=== PATIENT | male | born 1950 | race Caucasian/White ===

== ENCOUNTER 2018-08-09 01:59 | Outpatient (CLI) | payer MEDICARE, BC, SELFPAY ==
[2018-08-09 10:01] LABS: Abs Immature Grans 0.03 k/cumm (0.0-0.09); Absolute Basophil Count 0.03 k/cumm (0.0-0.2); Absolute Eosinophil Count 0.21 k/cumm (0.0-0.7); Absolute Lymphocyte Count 0.92 k/cumm (1.2-3.4); Basophils % 0.5; Eosinophils % 3.8; HCT 41.8 % (40.0-50.0); HGB 14.3 g/dL (13.5-17.5); Immature Grans % 0.5; Lymphocytes % 16.5; Mean Corp. HGB Concentration 34.2 g/dL (32.0-36.0); Mean Corpuscular Hemoglobin 33.9 pg (27.0-33.0); Mean Corpuscular Volume 99.1 fL (80-95); Mean Platelet Volume 9.5 fL (8.0-11.0); Monocytes % 10.7; Platelet Count 212 x1000/uL (130-400); RBC 4.22 m/cumm (4.50-6.00); RBC Distribution Width 13.5 % (11.8-14.1); White Blood Cell Count 5.59 k/cumm (4.4-10.8)
[2018-08-09 10:14] LABS: ALT 35 U/L (12-78); AST 18 U/L (15-37); Albumin 3.8 g/dL (3.4-5.0); Alkaline Phosphatase 68 U/L (46-116); BUN 23 mg/dL (7-18); Bilirubin, Total 0.5 mg/dL (0.2-1.0); Calcium 9.6 mg/dL (8.5-10.1); Chloride 104 mmol/L (98-107); Estimated GFR 37.82 (mL/min/1.73m2); Glucose 101 mg/dL (70-100); Potassium 4.3 mmol/L (3.5-5.1); Sodium 142 mmol/L (136-145); Total Protein 7.2 g/dL (6.4-8.2)
[2018-08-09 10:27] LABS: Hemoglobin A1C 5.6 % (4.5-6.2)
[2018-08-09 10:56] LABS: Cholesterol 178 mg/dL (50-200); HDL Cholesterol 51 mg/dL (40-60); LDL CHOLESTEROL 94 mg/dL (<100); Triglyceride 199 mg/dL (30-150)
[2018-08-10 10:57] LABS: PSA, Diagnostic 0.2 ng/ml (0-4.5)
== END 2018-08-09 02:19 ==
PROVIDERS: Internal Medicine; PCP Nurse Practitioner Family; Visit Provider Nurse Practitioner
DX: E78.5 Hyperlipidemia, unspecified (principal); R73.01 Impaired fasting glucose; C61 Malignant neoplasm of prostate
CPT/HCPCS: 36415; 80053; 80061; 83721; 83036; 84153; 85025

== ENCOUNTER 2018-08-25 00:23 | Outpatient (CLI) | payer MEDICARE, BC, SELFPAY ==
--- NOTE | 2018-08-25 09:48 | DI.US_ITS ---
SYMPTOMS/DIAGNOSIS: AAA SCREENING, Z13.6, ENCOUNTER FOR SCREENING FOR CARDIOVASCULAR DISEASE AAA SCREENING ULTRASOUND: The AP diameter of the proximal aorta is 2.1 x 2.8 cm. The AP diameter of the mid abdominal aorta is 2.0 x 2.1 cm. The AP diameter of the distal aorta is 2.1 x 2.1 cm. The left iliac has a maximal caliber of 1.2 cm. The right iliac has a maximal caliber of 1.4 cm. SUMMARY: No evidence of an abdominal aortic aneurysm.
== END 2018-08-25 00:43 ==
PROVIDERS: PCP Nurse Practitioner Family; Visit Provider Nurse Practitioner Family
DX: Z13.6 Encounter for screening for cardiovascular disorders (principal); R69 Illness, unspecified
CPT/HCPCS: 76706

== ENCOUNTER 2019-01-10 10:43 | Outpatient (CLI) | payer MEDICARE, BC, SELFPAY ==
[2019-01-10 11:12] LABS: Abs Immature Grans 0.01 k/cumm (0.0-0.09); Absolute Basophil Count 0.03 k/cumm (0.0-0.2); Absolute Eosinophil Count 0.36 k/cumm (0.0-0.7); Absolute Lymphocyte Count 1.26 k/cumm (1.2-3.4); Absolute Monocyte Count 0.67 k/cumm (0.11-0.7); Absolute Neutrophil Count 3.68 k/cumm (1.2-6.7); Basophils % 0.5; HCT 39.1 % (40.0-50.0); HGB 13.5 g/dL (13.5-17.5); Immature Grans % 0.2; Mean Corp. HGB Concentration 34.5 g/dL (32.0-36.0); Mean Corpuscular Hemoglobin 34.5 pg (27.0-33.0); Mean Platelet Volume 9.6 fL (8.0-11.0); Monocytes % 11.1; Neutrophils % 61.2; Platelet Count 191 x1000/uL (130-400); RBC 3.91 m/cumm (4.50-6.00); RBC Distribution Width 13.2 % (11.8-14.1); White Blood Cell Count 6.01 k/cumm (4.4-10.8)
[2019-01-10 11:20] LABS: ALT 35 U/L (12-78); AST 19 U/L (15-37); Albumin 3.7 g/dL (3.4-5.0); Alkaline Phosphatase 65 U/L (46-116); Anion Gap 7.8 mmol/L (3-11); BUN 30 mg/dL (7-18); Bilirubin, Total 0.5 mg/dL (0.2-1.0); CO2 28.2 mmol/L (21.0-32.0); CREATININE 1.82 mg/dL (0.70-1.30); Calcium 9.2 mg/dL (8.5-10.1); Chloride 105 mmol/L (98-107); Estimated GFR 37.23 (mL/min/1.73m2); Glucose 104 mg/dL (70-100); Potassium 4.8 mmol/L (3.5-5.1); Sodium 141 mmol/L (136-145); Total Protein 6.6 g/dL (6.4-8.2)
[2019-01-11 10:29] LABS: PSA, Diagnostic 0.1 ng/ml (0-4.5)
== END 2019-01-10 11:03 ==
PROVIDERS: PCP Nurse Practitioner Family; Visit Provider Internal Medicine
DX: C61 Malignant neoplasm of prostate (principal)
CPT/HCPCS: 36415; 80053; 84153; 85025

== ENCOUNTER 2019-04-20 09:26 | Outpatient (CLI) | payer MEDICARE, BC, SELFPAY ==
[2019-04-20 09:51] LABS: Abs Immature Grans 0.02 k/cumm (0.0-0.09); Absolute Basophil Count 0.02 k/cumm (0.0-0.2); Absolute Eosinophil Count 0.14 k/cumm (0.0-0.7); Absolute Lymphocyte Count 1.09 k/cumm (1.2-3.4); Absolute Monocyte Count 0.53 k/cumm (0.11-0.7); Absolute Neutrophil Count 4.12 k/cumm (1.2-6.7); Basophils % 0.3; Eosinophils % 2.4; HCT 41.5 % (40.0-50.0); Immature Grans % 0.3; Lymphocytes % 18.4; Mean Corp. HGB Concentration 33.7 g/dL (32.0-36.0); Mean Corpuscular Hemoglobin 33.7 pg (27.0-33.0); Mean Corpuscular Volume 99.8 fL (80-95); Mean Platelet Volume 9.5 fL (8.0-11.0); Neutrophils % 69.6; Platelet Count 193 x1000/uL (130-400); RBC 4.16 m/cumm (4.50-6.00); RBC Distribution Width 13.2 % (11.8-14.1); White Blood Cell Count 5.92 k/cumm (4.4-10.8)
[2019-04-20 11:29] LABS: Anion Gap 9.2 mmol/L (3-11); BUN 26 mg/dL (7-18); CO2 28.8 mmol/L (21.0-32.0); CREATININE 1.73 mg/dL (0.70-1.30); Calcium 8.8 mg/dL (8.5-10.1); Chloride 106 mmol/L (98-107); Estimated GFR 39.48 (mL/min/1.73m2); Glucose 93 mg/dL (70-100); Potassium 4.8 mmol/L (3.5-5.1); Sodium 144 mmol/L (136-145)
[2019-04-20 11:31] LABS: Vitamin B12 > 2000 pg/mL (193-986)
[2019-04-20 11:45] LABS: Uric Acid 5.8 mg/dL (3.5-7.2)
== END 2019-04-20 09:46 ==
PROVIDERS: PCP Nurse Practitioner Family; Visit Provider Nurse Practitioner Family
DX: D75.89 Other specified diseases of blood and blood-forming organs (principal); M10.9 Gout, unspecified; N18.3 Chronic kidney disease, stage 3 (moderate)
CPT/HCPCS: 36415; 80048; 82607; 82746; 84550; 85025

== ENCOUNTER 2019-05-23 15:30 | Outpatient (REF) | payer MEDICARE, BC, SELFPAY ==
[2019-05-23 19:58] LABS: ALT 28 U/L (16-63); AST 17 U/L (15-37); Alkaline Phosphatase 69 U/L (46-116); Anion Gap 11.7 mmol/L (3-11); BUN 35 mg/dL (7-18); Bilirubin, Total 0.4 mg/dL (0.2-1.0); CO2 27.3 mmol/L (21.0-32.0); CREATININE 1.87 mg/dL (0.70-1.30); Calcium 9.6 mg/dL (8.5-10.1); Chloride 102 mmol/L (98-107); Estimated GFR 36.09 (mL/min/1.73m2); Glucose 120 mg/dL (70-100); Lipase 201 U/L (73-393); Potassium 4.4 mmol/L (3.5-5.1); Sodium 141 mmol/L (136-145); TSH (W/Ref FT4) 1.81 uIU/mL (0.36-3.74)
[2019-05-23 20:14] LABS: Abs Immature Grans 0.02 k/cumm (0.0-0.09); Absolute Basophil Count 0.04 k/cumm (0.0-0.2); Absolute Eosinophil Count 0.23 k/cumm (0.0-0.7); Absolute Lymphocyte Count 1.54 k/cumm (1.2-3.4); Absolute Monocyte Count 0.83 k/cumm (0.11-0.7); Absolute Neutrophil Count 4.67 k/cumm (1.2-6.7); Basophils % 0.5; Eosinophils % 3.1; HCT 42.3 % (40.0-50.0); HGB 14.8 g/dL (13.5-17.5); Immature Grans % 0.3; Mean Corpuscular Hemoglobin 34.4 pg (27.0-33.0); Mean Corpuscular Volume 98.4 fL (80-95); Mean Platelet Volume 10.3 fL (8.0-11.0); Monocytes % 11.3; Neutrophils % 63.8; Platelet Count 231 x1000/uL (130-400); RBC Distribution Width 13.1 % (11.8-14.1); White Blood Cell Count 7.33 k/cumm (4.4-10.8)
== END 2019-05-23 15:50 ==
LOC: LBO 15:30
PROVIDERS: PCP Nurse Practitioner Family; Visit Provider Family Medicine
DX: R10.9 Unspecified abdominal pain (principal); G60.9 Hereditary and idiopathic neuropathy, unspecified; C61 Malignant neoplasm of prostate
CPT/HCPCS: 80053; 83690; 84154; 84443; 85025; 87086

== ENCOUNTER 2019-05-31 01:03 | Outpatient (CLI) | payer MEDICARE, BC, SELFPAY ==
--- NOTE | 2019-05-31 06:51 | DI.US_ITS ---
EXAM: US ABDOMEN CLINICAL HISTORY: Unexplained generalized abdominal pain,R10.9 TECHNIQUE: Ultrasound performed using standard protocol. COMPARISON: US AAA screening from 08/25/2018 FINDINGS: The abdominal aorta is unremarkable. The inferior vena cava is unremarkable. The liver is normal in size. No hepatic mass is seen. There is hepatopetal flow through the portal vein. Gallbladder is unremarkable. There is a negative sonographic Durham's sign. The common duct is within normal limit s at 5.8 mm. The pancreas, spleen and kidneys are unremarkable. No free fluid is seen in the abdome n. IMPRESSION: Unremarkable abdominal ultrasound.
== END 2019-05-31 01:23 ==
PROVIDERS: PCP Nurse Practitioner Family; Visit Provider Family Medicine
DX: R10.84 Generalized abdominal pain (principal); Z13.6 Encounter for screening for cardiovascular disorders
CPT/HCPCS: 76700

== ENCOUNTER 2019-07-14 16:29 | Outpatient (CLI) | payer MEDICARE, BC, SELFPAY ==
[2019-07-14 16:55] LABS: Abs Immature Grans 0.01 k/cumm (0.0-0.09); Absolute Basophil Count 0.04 k/cumm (0.0-0.2); Absolute Eosinophil Count 0.31 k/cumm (0.0-0.7); Absolute Lymphocyte Count 1.26 k/cumm (1.2-3.4); Absolute Monocyte Count 0.55 k/cumm (0.11-0.7); Absolute Neutrophil Count 3.03 k/cumm (1.2-6.7); Basophils % 0.8; HCT 39.8 % (40.0-50.0); Immature Grans % 0.2; Lymphocytes % 24.2; Mean Corp. HGB Concentration 35.2 g/dL (32.0-36.0); Mean Corpuscular Volume 96.6 fL (80-95); Mean Platelet Volume 9.2 fL (8.0-11.0); Monocytes % 10.6; Neutrophils % 58.2; Platelet Count 192 x1000/uL (130-400); RBC 4.12 m/cumm (4.50-6.00); RBC Distribution Width 13.1 % (11.8-14.1)
[2019-07-14 18:40] LABS: ALT 27 U/L (16-63); AST 14 U/L (15-37); Albumin 3.9 g/dL (3.4-5.0); Alkaline Phosphatase 63 U/L (46-116); Anion Gap 8.8 mmol/L (3-11); BUN 35 mg/dL (7-18); Bilirubin, Total 0.4 mg/dL (0.2-1.0); CO2 29.2 mmol/L (21.0-32.0); CREATININE 1.96 mg/dL (0.70-1.30); Calcium 9.6 mg/dL (8.5-10.1); Chloride 103 mmol/L (98-107); Estimated GFR 34.18 (mL/min/1.73m2); Glucose 96 mg/dL (74-106); Potassium 3.9 mmol/L (3.5-5.1); Sodium 141 mmol/L (136-145); Total Protein 6.9 g/dL (6.4-8.2)
[2019-07-17 09:56] LABS: PSA, Diagnostic 0.3 ng/mL (0.0-4.5)
== END 2019-07-14 16:49 ==
PROVIDERS: PCP Nurse Practitioner Family; Visit Provider Internal Medicine
DX: C61 Malignant neoplasm of prostate (principal)
CPT/HCPCS: 36415; 80053; 84153; 85025

== ENCOUNTER 2019-09-07 14:02 | Outpatient (REF) | payer MEDICARE, BC, SELFPAY | END 2019-09-07 14:22 | LOC: LBN 14:02 | PROVIDERS: PCP Nurse Practitioner Family; Visit Provider Internal Medicine Infectious Disease | DX: M86.9 Osteomyelitis, unspecified (principal) ==

== ENCOUNTER 2019-09-12 14:51 | Outpatient (CLI) | payer MEDICARE, BC, SELFPAY ==
--- NOTE | 2019-09-12 15:05 | DI.RAD_ITS ---
EXAM: XR CHEST 2V PA LATERAL INDICATION: OSTEOMYELITIS RT FOOT, M86.9, INFECTION, A49.1, CONFIRMATION OF PICC LINE. COMPARISON: No exams were available for comparison TECHNIQUE: 2D digital imaging was performed. FINDINGS: A PICC line has been inserted via the left arm. The tip projects in the superior vena cava. The philippe gs are clear. No pneumothorax is seen. The heart size is normal. The aorta is mildly tortuous. IMPRESSION: Satisfactory placement of PICC line.
== END 2019-09-12 15:11 ==
PROVIDERS: PCP Nurse Practitioner Family; Visit Provider Internal Medicine
DX: Z45.2 Encounter for adjustment and management of vascular access device (principal); M86.171 Other acute osteomyelitis, right ankle and foot; A49.1 Streptococcal infection, unspecified site
CPT/HCPCS: 71046

== ENCOUNTER 2019-09-30 02:01 | Outpatient (RCR) | payer MEDICARE, BC, SELFPAY ==
[2019-09-04] MEDS: Normal Saline Flush 10 ML SYR IVP ×2 (14:35→14:53)
[2019-09-04 14:49] LABS: Abs Immature Grans 0.06 k/cumm (0.0-0.09); Absolute Basophil Count 0.02 k/cumm (0.0-0.2); Absolute Eosinophil Count 0.15 k/cumm (0.0-0.7); Absolute Monocyte Count 0.75 k/cumm (0.11-0.7); Absolute Neutrophil Count 5.58 k/cumm (1.2-6.7); Basophils % 0.3; HCT 40.3 % (40.0-50.0); HGB 13.9 g/dL (13.5-17.5); Immature Grans % 0.8 %; Lymphocytes % 14.4; Mean Corp. HGB Concentration 34.5 g/dL (32.0-36.0); Mean Corpuscular Hemoglobin 33.4 pg (27.0-33.0); Mean Corpuscular Volume 96.9 fL (80-95); Mean Platelet Volume 9.5 fL (8.0-11.0); Monocytes % 9.8; Neutrophils % 72.7; Platelet Count 297 x1000/uL (130-400); RBC 4.16 m/cumm (4.50-6.00); RBC Distribution Width 12.9 % (11.8-14.1); White Blood Cell Count 7.66 k/cumm (4.4-10.8)
[2019-09-04 15:05] LABS: ALT 101 U/L (16-63); AST 107 U/L (15-37); Albumin 3.1 g/dL (3.4-5.0); Alkaline Phosphatase 59 U/L (46-116); Anion Gap 11.4 mmol/L (3-11); BUN 47 mg/dL (7-18); Bilirubin, Total 0.2 mg/dL (0.2-1.0); C-Reactive Protein 1.27 mg/dL (0.0-0.3); CO2 26.6 mmol/L (21.0-32.0); CREATININE 2.76 mg/dL (0.70-1.30); Calcium 9.3 mg/dL (8.5-10.1); Chloride 101 mmol/L (98-107); Creatine Kinase 82 U/L (39-308); Estimated GFR 23.03 (mL/min/1.73m2); Glucose 164 mg/dL (74-106); Potassium 3.7 mmol/L (3.5-5.1); Sodium 139 mmol/L (136-145); Total Protein 7.2 g/dL (6.4-8.2)
[2019-09-05] MEDS: Normal Saline Flush 10 ML SYR IVP (15:00)
[2019-09-05 15:06] VITALS: BP 125/85; PULSE 106; RESP 18; TEMP 36.7; O2SAT 98
[2019-09-06] MEDS: cefTRIAXone 2 GM/50 ML BAG IVPB (13:59)
[2019-09-06] MEDS: Normal Saline Flush 10 ML SYR IVP (13:59)
[2019-09-07] MEDS: cefTRIAXone 2 GM/50 ML BAG IVPB (14:07)
[2019-09-07] MEDS: Normal Saline Flush 10 ML SYR IVP (14:07)
[2019-09-08] MEDS: Normal Saline Flush 10 ML SYR IVP (14:16)
[2019-09-08] MEDS: cefTRIAXone 2 GM/50 ML BAG IVPB (14:16)
[2019-09-08 14:20] VITALS: PULSE 116; TEMP 36.3
[2019-09-08 14:51] LABS: Abs Immature Grans 0.05 k/cumm (0.0-0.09); Absolute Basophil Count 0.03 k/cumm (0.0-0.2); Absolute Eosinophil Count 0.18 k/cumm (0.0-0.7); Absolute Lymphocyte Count 1.33 k/cumm (1.2-3.4); Absolute Monocyte Count 0.81 k/cumm (0.11-0.7); Absolute Neutrophil Count 6.82 k/cumm (1.2-6.7); Basophils % 0.3; HCT 39.6 % (40.0-50.0); HGB 13.7 g/dL (13.5-17.5); Immature Grans % 0.5 %; Lymphocytes % 14.4; Mean Corp. HGB Concentration 34.6 g/dL (32.0-36.0); Mean Corpuscular Hemoglobin 33.7 pg (27.0-33.0); Mean Corpuscular Volume 97.5 fL (80-95); Mean Platelet Volume 9.2 fL (8.0-11.0); Monocytes % 8.8; Platelet Count 329 x1000/uL (130-400); RBC 4.06 m/cumm (4.50-6.00); RBC Distribution Width 13.2 % (11.8-14.1); White Blood Cell Count 9.22 k/cumm (4.4-10.8)
[2019-09-08 14:54] LABS: ALT 68 U/L (16-63); AST 29 U/L (15-37); Albumin 3.3 g/dL (3.4-5.0); Alkaline Phosphatase 57 U/L (46-116); BUN 42 mg/dL (7-18); Bilirubin, Total 0.2 mg/dL (0.2-1.0); C-Reactive Protein 0.15 mg/dL (0.0-0.3); CREATININE 2.34 mg/dL (0.70-1.30); Calcium 8.9 mg/dL (8.5-10.1); Chloride 104 mmol/L (98-107); Creatine Kinase 79 U/L (39-308); Estimated GFR 27.86 (mL/min/1.73m2); Glucose 116 mg/dL (74-106); Potassium 4.2 mmol/L (3.5-5.1); Sodium 139 mmol/L (136-145); Total Protein 6.9 g/dL (6.4-8.2)
[2019-09-08 14:55] VITALS: BP 149/94; PULSE 100; TEMP 36.6; O2SAT 98
[2019-09-09] MEDS: cefTRIAXone 2 GM/50 ML BAG IVPB (14:15)
[2019-09-09 14:17] VITALS: BP 126/88; PULSE 109; RESP 16; TEMP 36.9; O2SAT 98
[2019-09-09] MEDS: Normal Saline Flush 10 ML SYR IVP ×2 (14:17→14:53)
[2019-09-10 14:15] VITALS: BP 132/87; PULSE 105; RESP 18; TEMP 36.5; O2SAT 96
[2019-09-10] MEDS: cefTRIAXone 2 GM/50 ML BAG IVPB (14:23)
[2019-09-10] MEDS: Normal Saline Flush 10 ML SYR IVP (14:23)
[2019-09-11] MEDS: cefTRIAXone 2 GM/50 ML BAG IVPB (13:21)
[2019-09-11] MEDS: Normal Saline Flush 10 ML SYR IVP (13:22)
[2019-09-11 14:06] LABS: Abs Immature Grans 0.04 k/cumm (0.0-0.09); Absolute Basophil Count 0.05 k/cumm (0.0-0.2); Absolute Eosinophil Count 0.17 k/cumm (0.0-0.7); Absolute Lymphocyte Count 1.26 k/cumm (1.2-3.4); Absolute Neutrophil Count 7.14 k/cumm (1.2-6.7); Basophils % 0.5; Eosinophils % 1.8; HGB 14.5 g/dL (13.5-17.5); Immature Grans % 0.4 %; Lymphocytes % 13.2; Mean Corp. HGB Concentration 34.5 g/dL (32.0-36.0); Mean Corpuscular Hemoglobin 33.6 pg (27.0-33.0); Mean Corpuscular Volume 97.4 fL (80-95); Mean Platelet Volume 9.2 fL (8.0-11.0); Monocytes % 9.4; Neutrophils % 74.7; Platelet Count 336 x1000/uL (130-400); RBC 4.31 m/cumm (4.50-6.00); RBC Distribution Width 13.5 % (11.8-14.1); White Blood Cell Count 9.56 k/cumm (4.4-10.8)
[2019-09-11 14:18] LABS: ALT 43 U/L (16-63); AST 20 U/L (15-37); Albumin 3.5 g/dL (3.4-5.0); Alkaline Phosphatase 55 U/L (46-116); Anion Gap 9.4 mmol/L (3-11); BUN 39 mg/dL (7-18); Bilirubin, Total 0.2 mg/dL (0.2-1.0); CO2 25.6 mmol/L (21.0-32.0); Chloride 103 mmol/L (98-107); Creatine Kinase 51 U/L (39-308); Estimated GFR 28.42 (mL/min/1.73m2); Glucose 156 mg/dL (74-106); Potassium 4.3 mmol/L (3.5-5.1); Sodium 138 mmol/L (136-145); Total Protein 7.2 g/dL (6.4-8.2)
[2019-09-11 14:24] LABS: C-Reactive Protein < 0.05 mg/dL (0.0-0.3)
[2019-09-12] MEDS: Normal Saline Flush 10 ML SYR IVP (14:05)
[2019-09-12] MEDS: cefTRIAXone 2 GM/50 ML BAG IVPB (14:10)
[2019-09-13] MEDS: Normal Saline Flush 10 ML SYR IVP (14:56)
[2019-09-13] MEDS: Alteplase 2 MG VIAL IJ (14:56)
[2019-09-13] MEDS: cefTRIAXone 2 GM/50 ML BAG IVPB (14:56)
[2019-09-13] MEDS: Water,Injection,Sterile 10 ML VIAL 2.2 ML IV (14:57)
[2019-09-14] MEDS: cefTRIAXone 2 GM/50 ML BAG IVPB (13:54)
[2019-09-14] MEDS: Normal Saline Flush 10 ML SYR IVP (13:55)
[2019-09-15] MEDS: cefTRIAXone 2 GM/50 ML BAG IVPB (14:55)
[2019-09-15] MEDS: Normal Saline Flush 10 ML SYR IVP (15:06)
[2019-09-16] MEDS: cefTRIAXone 2 GM/50 ML BAG IVPB (14:10)
[2019-09-16] MEDS: Normal Saline Flush 10 ML SYR IVP (14:11)
[2019-09-17] MEDS: cefTRIAXone 2 GM/50 ML BAG IVPB ×2 (14:17→14:19)
[2019-09-18] MEDS: cefTRIAXone 2 GM/50 ML BAG IVPB (13:15)
[2019-09-18] MEDS: Normal Saline Flush 10 ML SYR IVP (13:31)
[2019-09-18 14:07] LABS: Abs Immature Grans 0.01 k/cumm (0.0-0.09); Absolute Basophil Count 0.03 k/cumm (0.0-0.2); Absolute Lymphocyte Count 1.06 k/cumm (1.2-3.4); Absolute Monocyte Count 0.55 k/cumm (0.11-0.7); Absolute Neutrophil Count 3.73 k/cumm (1.2-6.7); Basophils % 0.5; Eosinophils % 3.6; HCT 37.9 % (40.0-50.0); Immature Grans % 0.2 %; Mean Corp. HGB Concentration 34.3 g/dL (32.0-36.0); Mean Corpuscular Hemoglobin 33.9 pg (27.0-33.0); Mean Corpuscular Volume 98.7 fL (80-95); Mean Platelet Volume 9.6 fL (8.0-11.0); Monocytes % 9.9; Neutrophils % 66.8; Platelet Count 247 x1000/uL (130-400); RBC 3.84 m/cumm (4.50-6.00); RBC Distribution Width 13.7 % (11.8-14.1); White Blood Cell Count 5.58 k/cumm (4.4-10.8)
[2019-09-18 14:21] LABS: ALT 22 U/L (16-63); AST 18 U/L (15-37); Alkaline Phosphatase 47 U/L (46-116); Anion Gap 10.6 mmol/L (3-11); BUN 29 mg/dL (7-18); Bilirubin, Total 0.2 mg/dL (0.2-1.0); CO2 26.4 mmol/L (21.0-32.0); CREATININE 2.08 mg/dL (0.70-1.30); Calcium 8.5 mg/dL (8.5-10.1); Chloride 105 mmol/L (98-107); Estimated GFR 31.91 (mL/min/1.73m2); Glucose 144 mg/dL (74-106); Potassium 4.4 mmol/L (3.5-5.1); Sodium 142 mmol/L (136-145); Total Protein 6.3 g/dL (6.4-8.2)
[2019-09-18 14:34] LABS: C-Reactive Protein < 0.05 mg/dL (0.0-0.3)
[2019-09-19] MEDS: cefTRIAXone 2 GM/50 ML BAG IVPB (13:26)
[2019-09-19] MEDS: Normal Saline Flush 10 ML SYR IVP (13:27)
[2019-09-20] MEDS: cefTRIAXone 2 GM/50 ML BAG IVPB (14:08)
[2019-09-20] MEDS: Normal Saline Flush 10 ML SYR IVP (14:09)
[2019-09-21] MEDS: Normal Saline Flush 10 ML SYR IVP (14:03)
[2019-09-21] MEDS: cefTRIAXone 2 GM/50 ML BAG IVPB (14:03)
[2019-09-22] MEDS: cefTRIAXone 2 GM/50 ML BAG IVPB (13:32)
[2019-09-22] MEDS: Normal Saline Flush 10 ML SYR IVP (13:33)
[2019-09-23] MEDS: cefTRIAXone 2 GM/50 ML BAG IVPB (14:05)
[2019-09-23] MEDS: Normal Saline Flush 10 ML SYR IVP (14:06)
[2019-09-24] MEDS: cefTRIAXone 2 GM/50 ML BAG IVPB (14:01)
[2019-09-24 14:02] VITALS: BP 165/94; PULSE 80; RESP 16; TEMP 37.1; O2SAT 98
[2019-09-24] MEDS: Normal Saline Flush 10 ML SYR IVP (14:02)
[2019-09-25] MEDS: cefTRIAXone 2 GM/50 ML BAG IVPB (14:00)
[2019-09-25] MEDS: Normal Saline Flush 10 ML SYR IVP (14:01)
[2019-09-25 14:45] LABS: Abs Immature Grans 0.02 k/cumm (0.0-0.09); Absolute Basophil Count 0.04 k/cumm (0.0-0.2); Absolute Eosinophil Count 0.17 k/cumm (0.0-0.7); Absolute Lymphocyte Count 1.33 k/cumm (1.2-3.4); Absolute Monocyte Count 0.81 k/cumm (0.11-0.7); Absolute Neutrophil Count 3.75 k/cumm (1.2-6.7); Basophils % 0.7; Eosinophils % 2.8; HCT 39.3 % (40.0-50.0); HGB 13.7 g/dL (13.5-17.5); Immature Grans % 0.3 %; Lymphocytes % 21.7; Mean Corp. HGB Concentration 34.9 g/dL (32.0-36.0); Mean Corpuscular Hemoglobin 34.4 pg (27.0-33.0); Mean Corpuscular Volume 98.7 fL (80-95); Mean Platelet Volume 9.7 fL (8.0-11.0); Monocytes % 13.2; Neutrophils % 61.3; Platelet Count 206 x1000/uL (130-400); RBC 3.98 m/cumm (4.50-6.00); RBC Distribution Width 13.7 % (11.8-14.1); White Blood Cell Count 6.12 k/cumm (4.4-10.8)
[2019-09-25 15:19] LABS: ALT 26 U/L (16-63); AST 23 U/L (15-37); Albumin 3.2 g/dL (3.4-5.0); Alkaline Phosphatase 45 U/L (46-116); Anion Gap 12.7 mmol/L (3-11); BUN 29 mg/dL (7-18); Bilirubin, Total 0.2 mg/dL (0.2-1.0); CO2 23.3 mmol/L (21.0-32.0); CREATININE 1.92 mg/dL (0.70-1.30); Calcium 8.9 mg/dL (8.5-10.1); Chloride 104 mmol/L (98-107); Creatine Kinase 49 U/L (39-308); Glucose 106 mg/dL (74-106); Potassium 4.4 mmol/L (3.5-5.1); Sodium 140 mmol/L (136-145); Total Protein 6.6 g/dL (6.4-8.2)
[2019-09-25 15:29] LABS: C-Reactive Protein < 0.05 mg/dL (0.0-0.3)
[2019-09-26] MEDS: cefTRIAXone 2 GM/50 ML BAG IVPB (13:52)
[2019-09-26] MEDS: Normal Saline Flush 10 ML SYR IVP (14:16)
[2019-09-27] MEDS: cefTRIAXone 2 GM/50 ML BAG IVPB (13:59)
[2019-09-27] MEDS: Normal Saline Flush 10 ML SYR IVP (13:59)
[2019-09-28] MEDS: cefTRIAXone 2 GM/50 ML BAG IVPB (14:09)
[2019-09-28] MEDS: Normal Saline Flush 10 ML SYR IVP (14:09)
[2019-09-29] MEDS: Normal Saline Flush 10 ML SYR IVP (13:59)
[2019-09-29] MEDS: cefTRIAXone 2 GM/50 ML BAG IVPB (13:59)
[2019-09-30] MEDS: Normal Saline Flush 10 ML SYR IVP (14:14)
[2019-09-30] MEDS: cefTRIAXone 2 GM/50 ML BAG IVPB (14:14)
== END 2019-09-30 23:59 | disposition home or self-care (01) ==
LOC: INF 02:01
PROVIDERS: PCP Nurse Practitioner Family; Referring Provider Internal Medicine Infectious Disease; Visit Provider Internal Medicine
DX: M86.9 Osteomyelitis, unspecified (principal); A49.1 Streptococcal infection, unspecified site; Z79.2 Long term (current) use of antibiotics; Z45.2 Encounter for adjustment and management of vascular access device
CPT/HCPCS: 36415; 36569; 36591; 36592; 36593; 80053; 82550; 96365; 96374; 71046; 85025; 86140; 87324; J0878; J2997

== ENCOUNTER 2019-10-15 00:50 | Outpatient (RCR) | payer MEDICARE, BC, SELFPAY ==
[2019-10-01] MEDS: cefTRIAXone 2 GM/50 ML BAG IVPB (14:05)
[2019-10-01] MEDS: Normal Saline Flush 10 ML SYR IVP (14:05)
[2019-10-02] MEDS: Normal Saline Flush 10 ML SYR IVP (14:11)
[2019-10-02] MEDS: cefTRIAXone 2 GM/50 ML BAG IVPB (14:11)
[2019-10-02 14:28] LABS: Abs Immature Grans 0.01 k/cumm (0.0-0.09); Absolute Basophil Count 0.03 k/cumm (0.0-0.2); Absolute Eosinophil Count 0.19 k/cumm (0.0-0.7); Absolute Lymphocyte Count 1.48 k/cumm (1.2-3.4); Absolute Monocyte Count 0.73 k/cumm (0.11-0.7); Absolute Neutrophil Count 4.34 k/cumm (1.2-6.7); Basophils % 0.4; Eosinophils % 2.8; HCT 40.5 % (40.0-50.0); HGB 14.1 g/dL (13.5-17.5); Immature Grans % 0.1 %; Lymphocytes % 21.8; Mean Corp. HGB Concentration 34.8 g/dL (32.0-36.0); Mean Corpuscular Hemoglobin 34.3 pg (27.0-33.0); Mean Corpuscular Volume 98.5 fL (80-95); Mean Platelet Volume 9.6 fL (8.0-11.0); Monocytes % 10.8; Neutrophils % 64.1; Platelet Count 244 x1000/uL (130-400); RBC 4.11 m/cumm (4.50-6.00); RBC Distribution Width 13.6 % (11.8-14.1); White Blood Cell Count 6.78 k/cumm (4.4-10.8)
[2019-10-02 14:42] LABS: ALT 22 U/L (16-63); Albumin 3.3 g/dL (3.4-5.0); Alkaline Phosphatase 51 U/L (46-116); Anion Gap 8.7 mmol/L (3-11); BUN 37 mg/dL (7-18); Bilirubin, Total 0.2 mg/dL (0.2-1.0); CO2 27.3 mmol/L (21.0-32.0); CREATININE 2.01 mg/dL (0.70-1.30); Calcium 8.8 mg/dL (8.5-10.1); Chloride 105 mmol/L (98-107); Glucose 149 mg/dL (74-106); Potassium 4.3 mmol/L (3.5-5.1); Sodium 141 mmol/L (136-145); Total Protein 6.6 g/dL (6.4-8.2)
[2019-10-02 16:00] LABS: C-Reactive Protein < 0.05 mg/dL (0.0-0.3)
[2019-10-02 16:01] LABS: AST 18 U/L (15-37)
[2019-10-03] MEDS: Normal Saline Flush 10 ML SYR IVP (13:30)
[2019-10-03] MEDS: cefTRIAXone 2 GM/50 ML BAG IVPB (13:30)
[2019-10-04] MEDS: cefTRIAXone 2 GM/50 ML BAG IVPB (13:58)
[2019-10-04] MEDS: Normal Saline Flush 10 ML SYR IVP (14:03)
[2019-10-05] MEDS: cefTRIAXone 2 GM/50 ML BAG IVPB (14:01)
[2019-10-05] MEDS: Normal Saline Flush 10 ML SYR IVP (14:02)
[2019-10-06] MEDS: cefTRIAXone 2 GM/50 ML BAG IVPB (14:06)
[2019-10-06] MEDS: Normal Saline Flush 10 ML SYR IVP (14:07)
[2019-10-07] MEDS: cefTRIAXone 2 GM/50 ML BAG IVPB (13:58)
[2019-10-07] MEDS: Normal Saline Flush 10 ML SYR IVP (13:59)
[2019-10-08] MEDS: cefTRIAXone 2 GM/50 ML BAG IVPB (14:35)
[2019-10-08] MEDS: Normal Saline Flush 10 ML SYR IVP (14:44)
[2019-10-09] MEDS: cefTRIAXone 2 GM/50 ML BAG IVPB (14:03)
[2019-10-09] MEDS: Normal Saline Flush 10 ML SYR IVP (14:04)
[2019-10-09 14:29] LABS: Abs Immature Grans 0.02 k/cumm (0.0-0.09); Absolute Basophil Count 0.02 k/cumm (0.0-0.2); Absolute Eosinophil Count 0.14 k/cumm (0.0-0.7); Absolute Lymphocyte Count 1.53 k/cumm (1.2-3.4); Absolute Monocyte Count 0.74 k/cumm (0.11-0.7); Absolute Neutrophil Count 4.46 k/cumm (1.2-6.7); Basophils % 0.3; HCT 40.9 % (40.0-50.0); HGB 13.8 g/dL (13.5-17.5); Immature Grans % 0.3 %; Lymphocytes % 22.1; Mean Corp. HGB Concentration 33.7 g/dL (32.0-36.0); Mean Corpuscular Hemoglobin 33.1 pg (27.0-33.0); Mean Corpuscular Volume 98.1 fL (80-95); Mean Platelet Volume 9.6 fL (8.0-11.0); Monocytes % 10.7; Neutrophils % 64.6; Platelet Count 269 x1000/uL (130-400); RBC 4.17 m/cumm (4.50-6.00); RBC Distribution Width 13.6 % (11.8-14.1); White Blood Cell Count 6.91 k/cumm (4.4-10.8)
[2019-10-09 14:38] LABS: ALT 23 U/L (16-63); AST 17 U/L (15-37); Albumin 3.3 g/dL (3.4-5.0); Alkaline Phosphatase 48 U/L (46-116); Anion Gap 7.8 mmol/L (3-11); BUN 30 mg/dL (7-18); Bilirubin, Total 0.2 mg/dL (0.2-1.0); CO2 27.2 mmol/L (21.0-32.0); CREATININE 1.83 mg/dL (0.70-1.30); Calcium 8.9 mg/dL (8.5-10.1); Chloride 104 mmol/L (98-107); Glucose 153 mg/dL (74-106); Potassium 4.1 mmol/L (3.5-5.1); Sodium 139 mmol/L (136-145); Total Protein 6.6 g/dL (6.4-8.2)
[2019-10-09 14:40] LABS: C-Reactive Protein < 0.05 mg/dL (0.0-0.3)
[2019-10-10] MEDS: cefTRIAXone 2 GM/50 ML BAG IVPB (14:09)
[2019-10-10] MEDS: Normal Saline Flush 10 ML SYR IVP (14:09)
[2019-10-11] MEDS: cefTRIAXone 2 GM/50 ML BAG IVPB (13:55)
[2019-10-11] MEDS: Normal Saline Flush 10 ML SYR IVP (13:55)
[2019-10-12] MEDS: cefTRIAXone 2 GM/50 ML BAG IVPB (14:15)
[2019-10-12] MEDS: Normal Saline Flush 10 ML SYR IVP (14:21)
[2019-10-13] MEDS: cefTRIAXone 2 GM/50 ML BAG IVPB (13:59)
[2019-10-13] MEDS: Normal Saline Flush 10 ML SYR IVP (13:59)
[2019-10-14] MEDS: Normal Saline Flush 10 ML SYR IVP (13:58)
[2019-10-14] MEDS: cefTRIAXone 2 GM/50 ML BAG IVPB (13:58)
[2019-10-15] MEDS: Normal Saline Flush 10 ML SYR IVP (14:00)
[2019-10-15] MEDS: cefTRIAXone 2 GM/50 ML BAG IVPB (14:07)
[2019-10-15] MEDS: Bacitracin 1 PACKET (14:34)
== END 2019-10-31 23:59 | disposition home or self-care (01) ==
LOC: INF 00:50
PROVIDERS: Internal Medicine Infectious Disease; PCP Nurse Practitioner Family; Visit Provider Internal Medicine
DX: M86.9 Osteomyelitis, unspecified (principal); A49.1 Streptococcal infection, unspecified site; Z79.2 Long term (current) use of antibiotics; Z45.2 Encounter for adjustment and management of vascular access device
CPT/HCPCS: 36592; 80053; 96365; 85025; 86140

== ENCOUNTER 2019-12-29 01:41 | Outpatient (CLI) | payer MEDICARE, BC, SELFPAY ==
[2019-12-29 09:09] LABS: Abs Immature Grans 0.03 k/cumm (0.0-0.09); Absolute Basophil Count 0.03 k/cumm (0.0-0.2); Absolute Eosinophil Count 0.32 k/cumm (0.0-0.7); Absolute Lymphocyte Count 1.56 k/cumm (1.2-3.4); Absolute Monocyte Count 1.01 k/cumm (0.11-0.7); Absolute Neutrophil Count 4.03 k/cumm (1.2-6.7); Basophils % 0.4; Eosinophils % 4.6; HCT 41.1 % (40.0-50.0); HGB 14.3 g/dL (13.5-17.5); Immature Grans % 0.4 %; Lymphocytes % 22.3; Mean Corp. HGB Concentration 34.8 g/dL (32.0-36.0); Mean Corpuscular Volume 97.6 fL (80-95); Mean Platelet Volume 9.2 fL (8.0-11.0); Monocytes % 14.5; Neutrophils % 57.8; Platelet Count 231 x1000/uL (130-400); RBC 4.21 m/cumm (4.50-6.00); RBC Distribution Width 13.4 % (11.8-14.1); White Blood Cell Count 6.98 k/cumm (4.4-10.8)
[2019-12-29 09:28] LABS: Hemoglobin A1C 5.8 % (3.8-5.6)
[2019-12-29 10:17] LABS: ALT 34 U/L (16-63); AST 19 U/L (15-37); Albumin 3.9 g/dL (3.4-5.0); Alkaline Phosphatase 68 U/L (46-116); Anion Gap 3.8 mmol/L (3-11); BUN 40 mg/dL (7-18); Bilirubin, Total 0.3 mg/dL (0.2-1.0); CO2 30.2 mmol/L (21.0-32.0); CREATININE 2.29 mg/dL (0.70-1.30); Calcium 9.6 mg/dL (8.5-10.1); Calculated LDL 116 mg/dL (<100); Chloride 103 mmol/L (98-107); Cholesterol 233 mg/dL (<200); Estimated GFR 28.48 (mL/min/1.73m2); Glucose 99 mg/dL (74-106); HDL Cholesterol 49 mg/dL (40-60); Potassium 4.8 mmol/L (3.5-5.1); Sodium 137 mmol/L (136-145); Total Protein 6.9 g/dL (6.4-8.2); Triglyceride 344 mg/dL (<150)
[2019-12-29 10:28] LABS: Uric Acid 6.4 mg/dL (3.5-7.2)
[2020-01-01 10:37] LABS: PSA, Screening 0.2 ng/mL (0.0-4.5)
== END 2019-12-29 02:01 ==
PROVIDERS: PCP Nurse Practitioner Family; Visit Provider Nurse Practitioner Family
DX: M10.9 Gout, unspecified (principal); I10 Essential (primary) hypertension; N18.3 Chronic kidney disease, stage 3 (moderate); R73.01 Impaired fasting glucose; E78.5 Hyperlipidemia, unspecified; C61 Malignant neoplasm of prostate; Z51.81 Encounter for therapeutic drug level monitoring
CPT/HCPCS: 36415; 80053; 80061; 84153; 83036; 84550; 85025

== ENCOUNTER 2020-01-30 02:06 | Outpatient (RCR) | payer MEDICARE, BC, SELFPAY ==
[2020-01-01] VITALS (7 sets, daily range): BP systolic 127–153; BP diastolic 80–92; PULSE 59–65; RESP 18–19; TEMP 36–36.8; O2SAT 96–99
[2020-01-01] MEDS: Acetaminophen 325 MG TAB 650 MG PO (10:37)
[2020-01-01] MEDS: diphenhydrAMINE 25 MG CAP PO (10:37)
[2020-01-01] MEDS: IMMUNE GLOBULIN 40 GM/400 ML BTL 4.4 GM IVPB (10:59)
[2020-01-01] MEDS: IMMUNE GLOBULIN 5 GM/50 ML BTL 0.55 GM IVPB (10:59)
[2020-01-01] MEDS: Normal Saline Flush 10 ML SYR IVP (11:00)
[2020-01-02] MEDS: Acetaminophen 325 MG TAB 650 MG PO (10:39)
[2020-01-02] MEDS: diphenhydrAMINE 25 MG CAP PO (10:40)
[2020-01-02] MEDS: IMMUNE GLOBULIN 5 GM/50 ML BTL IVPB (10:47)
[2020-01-02 10:58] VITALS: BP 142/89; PULSE 66; RESP 20; TEMP 36.9; O2SAT 99
[2020-01-02] MEDS: Normal Saline Flush 10 ML SYR IVP (10:58)
[2020-01-02 11:14] VITALS: BP 137/87; PULSE 60; RESP 20; TEMP 36.3; O2SAT 97
[2020-01-02] MEDS: IMMUNE GLOBULIN 40 GM/400 ML BTL IVPB (11:22)
[2020-01-02 11:26] VITALS: BP 144/91; PULSE 57; RESP 20; TEMP 36.7; O2SAT 98
[2020-01-02 11:55] VITALS: BP 138/87; PULSE 68; RESP 20; TEMP 36.2; O2SAT 97
[2020-01-03] VITALS (7 sets, daily range): BP systolic 144–163; BP diastolic 88–99; PULSE 63–73; RESP 18–19; TEMP 36–36.9; O2SAT 93–98
[2020-01-03] MEDS: IMMUNE GLOBULIN 40 GM/400 ML BTL 4.4 GM IVPB (10:46)
[2020-01-03] MEDS: IMMUNE GLOBULIN 5 GM/50 ML BTL 0.55 GM IVPB (10:46)
[2020-01-03] MEDS: Normal Saline Flush 10 ML SYR IVP (10:46)
[2020-01-03] MEDS: Acetaminophen 325 MG TAB 650 MG PO (10:52)
[2020-01-03] MEDS: diphenhydrAMINE 25 MG CAP PO (10:52)
[2020-01-04 10:45] VITALS: BP 166/93; PULSE 66; RESP 18; TEMP 36.7; O2SAT 98
[2020-01-04] MEDS: IMMUNE GLOBULIN 5 GM/50 ML BTL 0.55 GM IVPB (10:47)
[2020-01-04] MEDS: IMMUNE GLOBULIN 40 GM/400 ML BTL 4.4 GM IVPB (10:49)
[2020-01-04] MEDS: Acetaminophen 325 MG TAB 650 MG PO (10:50)
[2020-01-04] MEDS: Normal Saline Flush 10 ML SYR IVP (10:50)
[2020-01-04 11:00] VITALS: BP 142/90; PULSE 66; RESP 18; TEMP 36.6; O2SAT 99
[2020-01-04 11:15] VITALS: BP 148/94; PULSE 61; RESP 18; TEMP 36.5; O2SAT 98
[2020-01-04 11:45] VITALS: BP 134/91; PULSE 61; RESP 19; TEMP 36.4; O2SAT 95
[2020-01-05 10:38] VITALS: BP 134/91; PULSE 61; RESP 19; TEMP 36.4; O2SAT 95
[2020-01-05] MEDS: Acetaminophen 325 MG TAB 650 MG PO (10:48)
[2020-01-05 10:49] VITALS: BP 142/89; PULSE 67; RESP 18; TEMP 37.1; O2SAT 98
[2020-01-05] MEDS: IMMUNE GLOBULIN 5 GM/50 ML BTL IVPB (10:56)
[2020-01-05 11:00] VITALS: BP 139/90; PULSE 65; RESP 18; TEMP 36.8; O2SAT 97
[2020-01-05 11:15] VITALS: BP 133/89; PULSE 66; RESP 18; TEMP 36.7; O2SAT 97
[2020-01-05] MEDS: IMMUNE GLOBULIN 40 GM/400 ML BTL 4.28 GM IVPB (11:36)
[2020-01-05] MEDS: Normal Saline Flush 10 ML SYR IVP (11:37)
[2020-01-05 11:45] VITALS: BP 135/89; PULSE 63; RESP 18; TEMP 36.7; O2SAT 97
[2020-01-05 12:15] VITALS: BP 140/95; PULSE 67; RESP 19; TEMP 36.7; O2SAT 96
[2020-01-30] MEDS: Acetaminophen 325 MG TAB 650 MG PO (10:58)
[2020-01-30] MEDS: Normal Saline Flush 10 ML SYR IVP (11:00)
[2020-01-30] MEDS: IMMUNE GLOBULIN 5 GM/50 ML BTL IVPB (11:07)
[2020-01-30 11:15] VITALS: BP 138/89; PULSE 70; RESP 16; TEMP 36.7; O2SAT 98
[2020-01-30 11:18] VITALS: BP 148/99; PULSE 69; RESP 16; TEMP 36.6; O2SAT 99
[2020-01-30 11:30] VITALS: BP 132/85; PULSE 63; RESP 18; TEMP 36.7; O2SAT 98
[2020-01-30] MEDS: IMMUNE GLOBULIN 10 GM/100 ML BTL IV (11:40)
[2020-01-30 12:06] VITALS: BP 131/88; PULSE 59; RESP 18; TEMP 36.7; O2SAT 97
[2020-01-30] MEDS: IMMUNE GLOBULIN 40 GM/400 ML BTL IVPB (12:18)
[2020-01-30 13:20] VITALS: BP 154/100; PULSE 61; RESP 18; TEMP 36.9; O2SAT 100
== END 2020-01-30 23:59 | disposition home or self-care (01) ==
LOC: INF 02:06
PROVIDERS: PCP Nurse Practitioner Family; Visit Provider Nurse Practitioner Acute Care
DX: D89.89 Other specified disorders involving the immune mechanism, not elsewhere classified (principal); G62.89 Other specified polyneuropathies
CPT/HCPCS: 96365; 96366; J1459

== ENCOUNTER 2020-02-06 01:08 | Outpatient (CLI) | payer MEDICARE, BC, SELFPAY ==
--- NOTE | 2020-02-06 09:47 | DI.RAD_ITS ---
EXAM: XR CHEST 2V PA LATERAL CLINICAL HISTORY: r.o chf, edema of both lower extremities, R60.0 localized edema TECHNIQUE: 2D digital imaging was performed. COMPARISON: No exams were available for comparison FINDINGS: MEDIASTINUM: Normal. HEART: Normal. PULMONARY VASCULATURE: Normal. LUNGS: Clear. PLEURAL SPACE: No pleural effusion or pneumothorax. BONE:Unremarkable IMPRESSION: No acute pulmonary findings. DATA REPOSITORY: RADIATION DOSE DELIVERED:
== END 2020-02-06 01:28 ==
PROVIDERS: PCP Nurse Practitioner Family; Visit Provider Nurse Practitioner Family
DX: R60.0 Localized edema (principal)
CPT/HCPCS: 71046

== ENCOUNTER 2020-02-09 03:27 | Outpatient (CLI) | payer MEDICARE, BC, SELFPAY ==
[2020-02-09 10:45] LABS: Abs Immature Grans 0.01 k/cumm (0.0-0.09); Absolute Basophil Count 0.02 k/cumm (0.0-0.2); Absolute Eosinophil Count 0.19 k/cumm (0.0-0.7); Absolute Lymphocyte Count 1.53 k/cumm (1.2-3.4); Absolute Monocyte Count 0.64 k/cumm (0.11-0.7); Absolute Neutrophil Count 1.87 k/cumm (1.2-6.7); Basophils % 0.5; Eosinophils % 4.5; HCT 40.2 % (40.0-50.0); HGB 13.8 g/dL (13.5-17.5); Immature Grans % 0.2 %; Lymphocytes % 35.9; Mean Corp. HGB Concentration 34.3 g/dL (32.0-36.0); Mean Corpuscular Hemoglobin 33.6 pg (27.0-33.0); Mean Corpuscular Volume 97.8 fL (80-95); Mean Platelet Volume 9.7 fL (8.0-11.0); Neutrophils % 43.9; Platelet Count 229 x1000/uL (130-400); RBC 4.11 m/cumm (4.50-6.00); White Blood Cell Count 4.26 k/cumm (4.4-10.8)
[2020-02-09 11:31] LABS: ALT 35 U/L (16-63); AST 30 U/L (15-37); Albumin 3.3 g/dL (3.4-5.0); Alkaline Phosphatase 67 U/L (46-116); Anion Gap 5.6 mmol/L (3-11); BUN 37 mg/dL (7-18); Bilirubin, Total 0.5 mg/dL (0.2-1.0); CO2 29.4 mmol/L (21.0-32.0); CREATININE 2.97 mg/dL (0.70-1.30); Calcium 9.4 mg/dL (8.5-10.1); Chloride 102 mmol/L (98-107); Glucose 100 mg/dL (74-106); Potassium 5.1 mmol/L (3.5-5.1); Sodium 137 mmol/L (136-145)
[2020-02-12 10:09] LABS: PSA, Diagnostic 0.2 ng/mL (0.0-4.5)
== END 2020-02-09 03:47 ==
PROVIDERS: PCP Nurse Practitioner Family; Visit Provider Internal Medicine
DX: C61 Malignant neoplasm of prostate (principal)
CPT/HCPCS: 36415; 80053; 84153; 85025

== ENCOUNTER 2020-02-20 03:54 | Outpatient (CLI) | payer MEDICARE, BC, SELFPAY ==
[2020-02-20 16:02] LABS: BUN 40 mg/dL (7-18); CREATININE 2.75 mg/dL (0.70-1.30); Calcium 9.6 mg/dL (8.5-10.1); Chloride 101 mmol/L (98-107); Estimated GFR 23.05 (mL/min/1.73m2); Glucose 84 mg/dL (74-106); Potassium 4.8 mmol/L (3.5-5.1); Sodium 135 mmol/L (136-145)
== END 2020-02-20 04:14 ==
PROVIDERS: PCP Nurse Practitioner Family; Visit Provider Nurse Practitioner Family
DX: N17.9 Acute kidney failure, unspecified (principal); N18.3 Chronic kidney disease, stage 3 (moderate); D72.819 Decreased white blood cell count, unspecified
CPT/HCPCS: 36415; 80048

== ENCOUNTER 2020-02-23 04:24 | Outpatient (RCR) | payer MEDICARE, BC, SELFPAY ==
[2020-01-31] MEDS: Normal Saline Flush 10 ML SYR IVP (10:55)
[2020-01-31] MEDS: IMMUNE GLOBULIN 5 GM/50 ML BTL IVPB (10:59)
[2020-01-31 11:00] VITALS: BP 145/84; PULSE 70; RESP 20; TEMP 36.5; O2SAT 98
[2020-01-31] MEDS: Acetaminophen 325 MG TAB 650 MG PO (11:01)
[2020-01-31 11:18] VITALS: BP 128/83; PULSE 63; RESP 20; TEMP 36.9; O2SAT 96
[2020-01-31] MEDS: IMMUNE GLOBULIN 10 GM/100 ML BTL IV (11:34)
[2020-01-31 11:48] VITALS: BP 130/83; PULSE 67; RESP 16; TEMP 36.6; O2SAT 96
[2020-01-31] MEDS: IMMUNE GLOBULIN 40 GM/400 ML BTL IVPB (12:05)
[2020-01-31 12:30] VITALS: BP 153/97; PULSE 65; RESP 20; TEMP 35.5; O2SAT 99
[2020-01-31 12:50] VITALS: BP 153/90; PULSE 60; RESP 20; TEMP 36.4; O2SAT 98
[2020-02-22 10:38] VITALS: BP 153/92; PULSE 58; RESP 18; TEMP 36.2; O2SAT 99
[2020-02-22] MEDS: IMMUNE GLOBULIN 5 GM/50 ML BTL IVPB (10:55)
[2020-02-22] MEDS: Acetaminophen 325 MG TAB 650 MG PO (10:56)
[2020-02-22] MEDS: Normal Saline Flush 10 ML SYR IVP (10:56)
[2020-02-22 10:59] VITALS: BP 152/97; PULSE 60; RESP 19; TEMP 36.3; O2SAT 98
[2020-02-22 11:14] VITALS: BP 142/94; PULSE 65; RESP 18; TEMP 36.3; O2SAT 97
[2020-02-22] MEDS: IMMUNE GLOBULIN 10 GM/100 ML BTL IV ×2 (11:24→11:26)
[2020-02-22 11:29] VITALS: BP 141/83; PULSE 66; RESP 19; TEMP 36.3; O2SAT 98
[2020-02-22] MEDS: IMMUNE GLOBULIN 40 GM/400 ML BTL 4.56 GM IVPB (11:57)
[2020-02-22 11:59] VITALS: BP 162/103; PULSE 60; RESP 18; TEMP 36.3; O2SAT 97
[2020-02-22 12:29] VITALS: BP 158/94; PULSE 65; RESP 19; TEMP 36.3; O2SAT 98
[2020-02-23 10:35] VITALS: BP 151/91; PULSE 66; RESP 19; TEMP 36.6; O2SAT 97
[2020-02-23] MEDS: Normal Saline Flush 10 ML SYR IVP (10:45)
[2020-02-23 10:47] VITALS: BP 127/86; PULSE 66; RESP 18; TEMP 36.6; O2SAT 96
[2020-02-23] MEDS: Acetaminophen 325 MG TAB 650 MG PO (10:54)
[2020-02-23] MEDS: IMMUNE GLOBULIN 5 GM/50 ML BTL IVPB (10:56)
[2020-02-23 11:03] VITALS: BP 137/90; PULSE 67; RESP 19; TEMP 36.6; O2SAT 95
[2020-02-23] MEDS: IMMUNE GLOBULIN 10 GM/100 ML BTL IV (11:20)
[2020-02-23 11:34] VITALS: BP 134/85; PULSE 74; RESP 18; TEMP 36.6; O2SAT 100
[2020-02-23] MEDS: IMMUNE GLOBULIN 40 GM/400 ML BTL IVPB (11:49)
[2020-02-23 12:04] VITALS: BP 142/88; PULSE 74; RESP 18; TEMP 36.6; O2SAT 97
[2020-02-23 12:34] VITALS: BP 137/85; PULSE 68; RESP 18; TEMP 36.5; O2SAT 97
== END 2020-03-01 23:59 | disposition home or self-care (01) ==
LOC: INF 04:24
PROVIDERS: PCP Nurse Practitioner Family; Visit Provider Nurse Practitioner Acute Care
DX: G62.89 Other specified polyneuropathies (principal); D89.89 Other specified disorders involving the immune mechanism, not elsewhere classified
CPT/HCPCS: 96365; 96366; J1459

== ENCOUNTER 2020-03-15 05:22 | Outpatient (RCR) | payer MEDICARE, BC, SELFPAY ==
[2020-03-14 10:39] VITALS: BP 121/82; PULSE 56; RESP 19; TEMP 36.2; O2SAT 100
[2020-03-14] MEDS: Acetaminophen 325 MG TAB 650 MG PO (10:39)
[2020-03-14] MEDS: IMMUNE GLOBULIN 5 GM/50 ML BTL 0.53 GM IVPB (10:39)
[2020-03-14 10:44] VITALS: BP 126/86; PULSE 61; RESP 19; TEMP 36.2; O2SAT 100
[2020-03-14] MEDS: Normal Saline Flush 10 ML SYR IVP (10:45)
[2020-03-14 10:59] VITALS: BP 127/84; PULSE 58; RESP 18; TEMP 36.2; O2SAT 98
[2020-03-14] MEDS: IMMUNE GLOBULIN 10 GM/100 ML BTL 1.06 GM IV (11:09)
[2020-03-14 11:29] VITALS: BP 125/82; PULSE 59; RESP 18; TEMP 36.2; O2SAT 98
[2020-03-14] MEDS: IMMUNE GLOBULIN 40 GM/400 ML BTL 4.28 GM IVPB (11:42)
[2020-03-14 11:59] VITALS: BP 130/84; PULSE 57; RESP 19; TEMP 36.2; O2SAT 98
[2020-03-14 12:29] VITALS: BP 146/88; PULSE 66; RESP 18; TEMP 36.2; O2SAT 100
[2020-03-15] MEDS: Normal Saline Flush 10 ML SYR IVP (10:40)
[2020-03-15] MEDS: Acetaminophen 325 MG TAB 650 MG PO (10:40)
[2020-03-15] MEDS: IMMUNE GLOBULIN 5 GM/50 ML BTL 0.53 GM IVPB (10:49)
[2020-03-15 10:52] VITALS: BP 119/78; PULSE 60; RESP 17; TEMP 36.5; O2SAT 96
[2020-03-15 11:00] VITALS: BP 123/81; PULSE 63; RESP 16; TEMP 36.4; O2SAT 98
[2020-03-15] MEDS: IMMUNE GLOBULIN 10 GM/100 ML BTL 2.14 GM IV (11:28)
[2020-03-15] MEDS: IMMUNE GLOBULIN 40 GM/400 ML BTL IVPB (12:00)
== END 2020-04-01 23:59 | disposition home or self-care (01) ==
LOC: INF 05:22
PROVIDERS: PCP Nurse Practitioner Family; Visit Provider Nurse Practitioner Acute Care
DX: D89.89 Other specified disorders involving the immune mechanism, not elsewhere classified (principal); G62.89 Other specified polyneuropathies
CPT/HCPCS: 96365; 96366; J1459

== ENCOUNTER 2020-03-26 01:00 | Outpatient (CLI) | payer MEDICARE, BC, SELFPAY ==
--- NOTE | 2020-03-26 14:01 | DI.US_ITS ---
APPROVED REPORT EXAM: Comprehensive 2D, Doppler, and color-flow Echocardiogram Patient Location: Out-Patient Drag Seiner: Baylee Truong RDCS (AE) Indications: Edema, SMITH Other Information Study Quality: Good Conclusion Left Ventricle : The left ventricle is normal size. The left ventricular systolic function is normal. The left ventricular ejection fraction is within the normal range. There is normal left ventricular wall thickness. There is normal LV segmental wall motion. The left ventricular diastolic function is normal. LVEF is 55%. Right Ventricle : Right ventricle is mildly dilated. The right ventricular systolic function is king l. Atria : The left atrium size is normal. The right atrium size is normal. Valves: There are no hemodynamically significant valvular lesions. Great Vessels : The aortic root is normal in size. The ascending aorta is mildly dilated. Aortic arch is normal in caliber. IVC is normal in size and collapses >50% with inspiration. Wall motion Left Ventricle The left ventricle is normal size. The left ventricular systolic function is normal. The left ventric ular ejection fraction is within the normal range. There is normal left ventricular wall thickness. T here is normal LV segmental wall motion. The left ventricular diastolic function is normal. There is no ventricular septal defect visualized. LVEF is 55%. Right Ventricle Right ventricle is mildly dilated. The right ventricular systolic function is normal. Atria The left atrium size is normal. The right atrium size is normal. The interatrial septum is intact wit h no evidence for an atrial septal defect. Aortic Valve The aortic valve is normal in structure. Aortic valve is trileaflet. There is no aortic valvular sten osis. No aortic regurgitation is present. Mitral Valve Mild mitral annular calcification. No evidence of mitral valve stenosis. Trace mitral regurgitation. Tricuspid Valve The tricuspid valve is normal in structure. There is no tricuspid valve stenosis. Trace tricuspid reg urgitation. Pulmonic Valve The pulmonary valve is normal in structure. There is no pulmonic valvular stenosis. Trace pulmonic re gurgitation. Great Vessels The aortic root is normal in size. The ascending aorta is mildly dilated. Aortic arch is normal in ca liber. IVC is normal in size and collapses >50% with inspiration. Pericardium There is no pericardial effusion. There is no pleural effusion. 2D Dimensions IVSD d PLAX 1.10 cm M: 0.6-1.2 LV Vol A2C d MOD 112.2 mL LVPW d PLAX 1.12 cm M: 0.6 - 1.2 LV Vol A4C d MOD 92.8 mL LVID d PLAX 5.14 cm M: 4.2 - 5.8 LA vol/ BSA A2C s A-L 18.6 mL/m2 LVDs 3.65 cm M: 2.5 - 4.0 LA vol/ BSA A4C s A-L 21.6 mL/m2 Ao Root d 3.10 cm M: 3.1 - 3.7 LA Vol/ BSA Biplane s A-L 21.4 mL/m2 RA Area A4C 15.25 cm2 LA Area A4C s MOD 18.30 cm2 RA Vol/ BSA A4C s A-L 16.2 mL/m2 LA Area A2C s MOD 15.87 cm2 Ao Asc Diam d 3.52 cm M: 2.6 - 3.4 LV EF A4C MOD 53.2 % LV EF Teichholz 53.9 % LV EF A2C MOD 56.0 % LVEF (Almeida's) 53.73 % M: 52 - 72 LV EF Biplane MOD 53.7 % LV Volume 77.20 mL M: 62 - 150 SV 57.50 mL LV Volume Index 34.15 mL/m2 M: 34 - 74 SV Index 25.46 mL/m2 LV Vol Biplane MOD 107.0 mL FS 28.00 % M-Mode TAPSE 2.43 cm (M/F) >1.7 LV Diastology MV E' medial 0.061 (>0.07 m/s) E/A Ratio 0.8 LV E/e MED 9.45 (<14) MV E Vmax 0.58 (0.4-1.3 m/s) MV E' lateral 0.081 (>0.1 m/s) MV A Vmax 0.75 (0.4-1.3 m/s) LV E/e LAT 7.15 (<14) MV E/A Ratio 0.73 MV E/E' medial 9.49 MV E/E' lateral 7.19 Aortic Valve LVOT Area 3.64 cm2 AoV Area Vmax 3.23 cm2 LVOT Vmax 1.06 m/s AoV Area/ BSA (Vmax) 1.43 cm2/m2 LVOT Mean Sebastián. 0.67 m/s BHARATHI Mean Sebastián. 3.04 cm2 LVOT Peak Grad 4.5 mmHg BHARATHI Mean Sebastián. Index 1.35 cm2/m2 LVOT Mean Grad 2.1 mmHg LVOT VTI 0.223 m LVOT Diam s 2.15 cm AoV Vmax 1.19 m/s Velocity Ratio 0.89 AoV Mean Sebastián. 0.80 m/s AoV Peak Grad 5.7 mmHg LVOT SV 81.14 mL AoV Mean Grad 2.8 mmHg AoV VTI 0.254 m AoV Area VTI 3.19 cm2 AoV Area/ BSA (VTI) 1.41 cm/m2 Mitral Valve MV DT 287 (160-240 msec) MR Vmax 5.38 m/s MV PHT 83 msec MR VTI 1.516 m MV Area PHT 2.64 cm2 MR Peak Grad 115.7 mmHg MV VTI 0.303 m MR Mean Grad 86.6 mmHg MV Area VTI 2.68 (4.0-6.0 cm2) Pulmonary Valve PV Vmax 1.11 (0.5-1.5 m/s) RVOT Peak Gr. 1.65 mmHg PV Peak Grad 5.0 mmHg RVOT Mean Gr. 0.90 mmHg PV Mean Grad 2.5 mmHg RVOT VTI 0.143 m PV VTI 0.204 m RVOT Vmax 0.64 m/s Tricuspid Valve TR Peak Grad 19.5 mmHg TR Vmax 2.21 m/s RA Pressure 3.00 mmHg RVSP (TR) 22.6 mmHg
== END 2020-03-26 01:20 ==
PROVIDERS: PCP Nurse Practitioner Family; Visit Provider Nurse Practitioner Family
DX: R60.0 Localized edema (principal); R06.09 Other forms of dyspnea; N17.9 Acute kidney failure, unspecified; D72.819 Decreased white blood cell count, unspecified
CPT/HCPCS: 36415; 80048; 93306; 85025

== ENCOUNTER 2020-03-26 03:19 | Outpatient (CLI) | payer MEDICARE, BC, SELFPAY ==
[2020-03-26 10:11] LABS: Abs Immature Grans 0.02 10^3/uL (0.0-0.06); Absolute Basophil Count 0.03 10^3/uL (0.0-0.2); Absolute Eosinophil Count 0.24 10^3/uL (0.0-0.7); Absolute Lymphocyte Count 0.99 10^3/uL (1.2-3.4); Absolute Monocyte Count 0.47 10^3/uL (0.1-0.8); Absolute Neutrophil Count 2.09 10^3/uL (1.2-6.7); Basophils % 0.8; Eosinophils % 6.3; HCT 39.8 % (40.0-50.0); HGB 13.4 g/dL (13.5-17.5); Immature Grans % 0.5; Lymphocytes % 25.8; MCH 33.9 pg (27.0-33.0); MCHC 33.7 % (32.0-36.0); MCV 100.8 fL (80-95); MPV 9.1 fL (8.0-11.0); Monocytes % 12.2; Neutrophils % 54.4; Nucleated RBC 0 %; Platelet Count 194 10^3/uL (130-400); RBC 3.95 10^6/uL (4.36-5.78); RDW 13.8 % (11.8-14.1); RDW-SD 50.9 fL; WBC 3.84 10^3/uL (4.4-10.8)
[2020-03-26 11:34] LABS: Anion Gap 1.1 mmol/L (3-11); BUN 39 mg/dL (7-18); CO2 29.9 mmol/L (21.0-32.0); CREATININE 2.73 mg/dL (0.70-1.30); Calcium 9.5 mg/dL (8.5-10.1); Chloride 107 mmol/L (98-107); Estimated GFR 23.25 (mL/min/1.73m2); Glucose 118 mg/dL (74-106); Sodium 138 mmol/L (136-145)
== END 2020-03-26 03:39 ==
PROVIDERS: PCP Nurse Practitioner Family; Visit Provider Nurse Practitioner Family
DX: N17.9 Acute kidney failure, unspecified (principal); D72.819 Decreased white blood cell count, unspecified
CPT/HCPCS: 36415; 80048; 85025

== ENCOUNTER 2020-04-10 01:07 | Outpatient (CLI) | payer MEDICARE, BC, SELFPAY ==
--- NOTE | 2020-04-10 10:45 | DI.US_ITS ---
EXAM: US RENAL CLINICAL HISTORY: Worsening CKD (suspect 2/2 IVIG) want to r/o other, N18.9. TECHNIQUE: [place] scale, color and spectral Doppler were used. COMPARISON: CT ABD PELVIS WITH CONTRAST from 11/26/2016 FINDINGS: Renal size in cm: Right: 9.1 left: 11.2 Echogenicity: Mildly increased overall renal echogenicity, consistent with medical renal disease. Hydronephrosis: No Cyst or mass: 11 millimeter cyst lower pole left kidney. Nephrolithiasis: No Other findings: Mild right renal parenchymal atrophy. Bladder:Normal there is mild bladder wall thickening on the right and mild bladder wall trabeculation . Prevoid vol:83 cc Postvoid vol:5 cc Both ureteral jets were visualized. The prostate volume is measured at 20 cc. IMPRESSION: Bilateral increased renal echogenicity, consistent with medical renal disease. Mildly atrophic righ t kidney. Bladder wall thickening without visible mass. DATA REPOSITORY:
== END 2020-04-10 01:27 ==
PROVIDERS: PCP Nurse Practitioner Family; Visit Provider Nurse Practitioner Family
DX: N26.1 Atrophy of kidney (terminal) (principal); N18.9 Chronic kidney disease, unspecified
CPT/HCPCS: 76770

== ENCOUNTER 2020-04-16 03:36 | Outpatient (CLI) | payer MEDICARE, BC, SELFPAY ==
[2020-04-16 09:18] LABS: Bilirubin Negative (Negative); Blood Trace-lysed (Negative); Clarity Clear (Clear); Glucose Negative (Negative); Ketones Negative (Negative); Leukocyte Esterase Negative (Negative); Nitrite Negative (Negative); Specific Gravity 1.025 (1.005-1.025); Urobilinogen 0.2 EU/dL (Up TO 0.2)
[2020-04-16 10:10] LABS: Bacteria Negative HPF (Negative); Crystals Negative HPF (Negative); Epithelial Cells Negative HPF (Negative); Mucus Negative (Negative); RBC 0-2 HPF (0-2); WBC 0-2 HPF (0-5)
[2020-04-16 10:11] LABS: C & S Indicated? No; Casts 3-5 Hyaline LPF (Negative)
== END 2020-04-16 03:56 ==
PROVIDERS: PCP Nurse Practitioner Family; Visit Provider Nurse Practitioner Family
DX: N32.89 Other specified disorders of bladder (principal)
CPT/HCPCS: 81003; 81015

== ENCOUNTER 2020-05-06 01:24 | Outpatient (CLI) | payer MEDICARE, BC, SELFPAY ==
[2020-05-06 10:30] LABS: Abs Immature Grans 0.03 10^3/uL (0.0-0.06); Absolute Basophil Count 0.05 10^3/uL (0.0-0.2); Absolute Eosinophil Count 0.33 10^3/uL (0.0-0.7); Absolute Lymphocyte Count 1.57 10^3/uL (1.2-3.4); Absolute Monocyte Count 0.91 10^3/uL (0.1-0.8); Absolute Neutrophil Count 3.84 10^3/uL (1.2-6.7); Basophils % 0.7; Eosinophils % 4.9; HCT 44.2 % (40.0-50.0); HGB 15.2 g/dL (13.5-17.5); Immature Grans % 0.4; Lymphocytes % 23.3; MCH 34.5 pg (27.0-33.0); MCHC 34.4 % (32.0-36.0); MCV 100.2 fL (80-95); MPV 10.2 fL (8.0-11.0); Monocytes % 13.5; Neutrophils % 57.2; Nucleated RBC 0 %; Platelet Count 256 10^3/uL (130-400); RBC 4.41 10^6/uL (4.36-5.78); RDW 13.2 % (11.8-14.1); RDW-SD 48.7 fL; WBC 6.73 10^3/uL (4.4-10.8)
[2020-05-06 11:20] LABS: Anion Gap 8.6 mmol/L (3-11); BUN 45 mg/dL (7-18); CO2 29.4 mmol/L (21.0-32.0); CREATININE 2.96 mg/dL (0.70-1.30); Calcium 9.3 mg/dL (8.5-10.1); Chloride 102 mmol/L (98-107); Estimated GFR 21.18 (mL/min/1.73m2); Glucose 89 mg/dL (74-106); Potassium 4.9 mmol/L (3.5-5.1); Sodium 140 mmol/L (136-145)
== END 2020-05-06 01:44 ==
PROVIDERS: PCP Nurse Practitioner Family; Visit Provider Nurse Practitioner Family
DX: D72.818 Other decreased white blood cell count (principal); N17.9 Acute kidney failure, unspecified; N18.30 Chronic kidney disease, stage 3 unspecified
CPT/HCPCS: 36415; 80048; 85025

== ENCOUNTER 2020-06-14 14:21 | Outpatient (CLI) | payer MEDICARE, BC, SELFPAY ==
[2020-06-19 02:35] LABS: Patient Race White; SARS-CoV-2 RNA Undetected (Undetected); SARS-CoV-2 Specimen Source Nasal
== END 2020-06-14 14:41 ==
PROVIDERS: PCP Nurse Practitioner Family; Visit Provider Nurse Practitioner Family
DX: R59.0 Localized enlarged lymph nodes (principal); R05 Cough
CPT/HCPCS: U0003

== ENCOUNTER 2020-10-18 03:20 | Outpatient (CLI) | payer MEDICARE, BC, SELFPAY ==
[2020-10-18 08:34] LABS: Abs Immature Grans 0.01 10^3/uL (0.0-0.06); Absolute Basophil Count 0.03 10^3/uL (0.0-0.2); Absolute Eosinophil Count 0.21 10^3/uL (0.0-0.7); Absolute Lymphocyte Count 0.93 10^3/uL (1.2-3.4); Absolute Monocyte Count 0.56 10^3/uL (0.1-0.8); Absolute Neutrophil Count 3.82 10^3/uL (1.2-6.7); Basophils % 0.5; Eosinophils % 3.8; HCT 38.5 % (40.0-50.0); HGB 13.1 g/dL (13.5-17.5); Immature Grans % 0.2; Lymphocytes % 16.7; MCH 33.6 pg (27.0-33.0); MCV 98.7 fL (80-95); MPV 9.7 fL (8.0-11.0); Monocytes % 10.1; Neutrophils % 68.7; Nucleated RBC 0 %; Platelet Count 213 10^3/uL (130-400); RDW 12.3 % (11.8-14.1); RDW-SD 44.9 fL; WBC 5.56 10^3/uL (4.4-10.8)
[2020-10-18 09:44] LABS: ALT 31 U/L (16-63); AST 15 U/L (15-37); Albumin 3.7 g/dL (3.4-5.0); Alkaline Phosphatase 57 U/L (46-116); Anion Gap 8.6 mmol/L (3-11); BUN 64 mg/dL (7-18); Bilirubin, Total 0.4 mg/dL (0.2-1.0); CO2 29.4 mmol/L (21.0-32.0); Calcium 9.2 mg/dL (8.5-10.1); Chloride 102 mmol/L (98-107); Estimated GFR 15.87 (mL/min/1.73m2); Glucose 130 mg/dL (74-106); Potassium 4.3 mmol/L (3.5-5.1); Sodium 140 mmol/L (136-145); Total Protein 6.7 g/dL (6.4-8.2)
[2020-10-18 09:56] LABS: CREATININE 3.8 mg/dL (0.70-1.30)
== END 2020-10-18 03:21 | disposition home or self-care (01) ==
LOC: LBO 03:20
PROVIDERS: PCP Nurse Practitioner Family; Visit Provider Internal Medicine
DX: C61 Malignant neoplasm of prostate (principal)
CPT/HCPCS: 36415; 80053; 84153; 85025

== ENCOUNTER 2020-12-13 03:22 | Outpatient (CLI) | payer MEDICARE, BC, SELFPAY ==
[2020-12-13 11:02] LABS: Abs Immature Grans 0.02 10^3/uL (0.0-0.06); Absolute Basophil Count 0.03 10^3/uL (0.0-0.2); Absolute Eosinophil Count 0.16 10^3/uL (0.0-0.7); Absolute Lymphocyte Count 0.96 10^3/uL (1.2-3.4); Absolute Monocyte Count 0.68 10^3/uL (0.1-0.8); Absolute Neutrophil Count 4.21 10^3/uL (1.2-6.7); Basophils % 0.5; Eosinophils % 2.6; HCT 34.6 % (40.0-50.0); Immature Grans % 0.3; Lymphocytes % 15.8; MCH 33.9 pg (27.0-33.0); MCHC 34.7 % (32.0-36.0); MCV 97.7 fL (80-95); MPV 9.4 fL (8.0-11.0); Monocytes % 11.2; Neutrophils % 69.6; Nucleated RBC 0 %; Platelet Count 214 10^3/uL (130-400); RBC 3.54 10^6/uL (4.36-5.78); RDW 11.9 % (11.8-14.1); WBC 6.06 10^3/uL (4.4-10.8)
[2020-12-13 12:13] LABS: Anion Gap 9.2 mmol/L (3-11); BUN 59 mg/dL (7-18); CO2 29.8 mmol/L (21.0-32.0); Calcium 9.6 mg/dL (8.5-10.1); Chloride 99 mmol/L (98-107); Estimated GFR 16.37 (mL/min/1.73m2); Glucose 100 mg/dL (74-106); Potassium 4.5 mmol/L (3.5-5.1); Sodium 138 mmol/L (136-145)
[2020-12-13 12:20] LABS: CREATININE 3.7 mg/dL (0.70-1.30)
== END 2020-12-13 03:23 | disposition home or self-care (01) ==
LOC: LBO 03:22
PROVIDERS: PCP Nurse Practitioner Family; Visit Provider Internal Medicine
DX: N18.4 Chronic kidney disease, stage 4 (severe) (principal)
CPT/HCPCS: 36415; 80048; 85025

== ENCOUNTER 2021-03-26 02:56 | Outpatient (CLI) | payer MEDICARE, BC, SELFPAY ==
[2021-03-26 10:27] LABS: Abs Immature Grans 0.02 10^3/uL (0.0-0.06); Absolute Basophil Count 0.05 10^3/uL (0.0-0.2); Absolute Eosinophil Count 0.44 10^3/uL (0.0-0.7); Absolute Lymphocyte Count 1.05 10^3/uL (1.2-3.4); Absolute Monocyte Count 0.56 10^3/uL (0.1-0.8); Absolute Neutrophil Count 4.31 10^3/uL (1.2-6.7); Basophils % 0.8; Eosinophils % 6.8; HCT 38.4 % (40.0-50.0); Immature Grans % 0.3; Lymphocytes % 16.3; MCH 33.9 pg (27.0-33.0); MCHC 33.9 % (32.0-36.0); MPV 9.8 fL (8.0-11.0); Monocytes % 8.7; Neutrophils % 67.1; Nucleated RBC 0 %; Platelet Count 201 10^3/uL (130-400); RBC 3.84 10^6/uL (4.36-5.78); RDW 12.6 % (11.8-14.1); Reticulocyte 1.5 % (0.5-2.4); WBC 6.43 10^3/uL (4.4-10.8)
[2021-03-26 10:47] LABS: Hemoglobin A1C 5.7 % (<5.7)
[2021-03-26 11:25] LABS: Iron 70 ug/dL (65-175); Total Iron Binding Capacity 268 ug/dL (250-450); Transferrin Sat 26 % (20-55)
[2021-03-26 11:38] LABS: Calculated LDL 91 mg/dL (<100); Cholesterol 180 mg/dL (<200); Ferritin 37 ng/mL (26-388); Folate 19.1 ng/mL (8.6-20.0); HDL Cholesterol 43 mg/dL (40-60); Triglyceride 231 mg/dL (<150); Vitamin B12 1828 pg/mL (193-986)
[2021-03-26 11:49] LABS: LDH 154 U/L (85-227); Uric Acid 9.7 mg/dL (3.5-7.2)
[2021-03-27 17:33] LABS: Erythropoietin 11.7 mIU/mL (2.6 - 18.5)
== END 2021-03-26 02:57 | disposition home or self-care (01) ==
LOC: LBO 02:56
PROVIDERS: PCP Nurse Practitioner Family; Visit Provider Nurse Practitioner Family
DX: D53.9 Nutritional anemia, unspecified (principal); N18.4 Chronic kidney disease, stage 4 (severe); R73.01 Impaired fasting glucose; E78.5 Hyperlipidemia, unspecified; M10.9 Gout, unspecified
CPT/HCPCS: 36415; 80061; 82668; 82607; 82728; 82746; 83036; 83540; 83550; 83615; 84550; 85025; 85045

== ENCOUNTER 2021-04-10 02:52 | Outpatient (CLI) | payer MEDICARE, BC, SELFPAY ==
[2021-04-10 10:55] LABS: Kit/Specimen SENT
[2021-04-10 10:58] LABS: Abs Immature Grans 0.02 10^3/uL (0.0-0.06); Absolute Basophil Count 0.04 10^3/uL (0.0-0.2); Absolute Eosinophil Count 0.35 10^3/uL (0.0-0.7); Absolute Lymphocyte Count 1.18 10^3/uL (1.2-3.4); Absolute Monocyte Count 0.67 10^3/uL (0.1-0.8); Absolute Neutrophil Count 4.79 10^3/uL (1.2-6.7); Basophils % 0.6; HCT 40.2 % (40.0-50.0); HGB 13.4 g/dL (13.5-17.5); Immature Grans % 0.3; Lymphocytes % 16.7; MCH 33.1 pg (27.0-33.0); MCHC 33.3 % (32.0-36.0); MCV 99.3 fL (80-95); MPV 9.4 fL (8.0-11.0); Monocytes % 9.5; Neutrophils % 67.9; Nucleated RBC 0 %; Platelet Count 208 10^3/uL (130-400); RBC 4.05 10^6/uL (4.36-5.78); RDW 12.5 % (11.8-14.1); RDW-SD 45.4 fL; WBC 7.05 10^3/uL (4.4-10.8)
[2021-04-10 11:10] LABS: ALT 27 U/L (16-63); AST 14 U/L (15-37); Albumin 3.8 g/dL (3.4-5.0); Alkaline Phosphatase 72 U/L (46-116); Anion Gap 7.6 mmol/L (3-11); BUN 54 mg/dL (7-18); Bilirubin, Total 0.4 mg/dL (0.2-1.0); CO2 30.4 mmol/L (21.0-32.0); CREATININE 3.4 mg/dL (0.70-1.30); Calcium 9.5 mg/dL (8.5-10.1); Chloride 102 mmol/L (98-107); Glucose 104 mg/dL (74-106); Potassium 4.5 mmol/L (3.5-5.1); Sodium 140 mmol/L (136-145); Total Protein 7.5 g/dL (6.4-8.2)
[2021-04-10 11:59] LABS: Uric Acid 6.7 mg/dL (3.5-7.2)
[2021-04-11 17:36] LABS: PSA, Ultrasensitive 0.29 ng/mL (<= 6.5)
== END 2021-04-10 02:53 | disposition home or self-care (01) ==
LOC: LBO 02:52
PROVIDERS: Internal Medicine Nephrology; PCP Nurse Practitioner Family; Visit Provider Nurse Practitioner Adult Health
DX: C61 Malignant neoplasm of prostate (principal); M10.9 Gout, unspecified; Z01.818 Encounter for other preprocedural examination
CPT/HCPCS: 36415; 80053; 84153; 84550; 85025

== ENCOUNTER 2021-06-06 03:36 | Outpatient (CLI) | payer MEDICARE, BC, SELFPAY ==
[2021-06-06 10:40] LABS: Kit/Specimen SENT
== END 2021-06-06 03:37 | disposition home or self-care (01) ==
LOC: LBO 03:36
PROVIDERS: Internal Medicine Nephrology; PCP Nurse Practitioner Family; Visit Provider Nurse Practitioner Adult Health
DX: M10.9 Gout, unspecified (principal)
CPT/HCPCS: 36415; 84550

== ENCOUNTER 2021-07-07 03:01 | Outpatient (CLI) | payer MEDICARE, BC, SELFPAY ==
[2021-07-07 10:44] LABS: Kit/Specimen SENT
== END 2021-07-07 03:02 | disposition home or self-care (01) ==
PROVIDERS: PCP Nurse Practitioner Family; Visit Provider Internal Medicine Nephrology
DX: Z01.818 Encounter for other preprocedural examination (principal)
CPT/HCPCS: 36415

== ENCOUNTER 2021-08-08 03:48 | Outpatient (CLI) | payer MEDICARE, BC, SELFPAY ==
[2021-08-08 11:31] LABS: Kit/Specimen SENT
[2021-08-08 12:02] LABS: Abs Immature Grans 0.02 10^3/uL (0.0-0.06); Absolute Basophil Count 0.03 10^3/uL (0.0-0.2); Absolute Eosinophil Count 0.18 10^3/uL (0.0-0.7); Absolute Lymphocyte Count 0.96 10^3/uL (1.2-3.4); Absolute Neutrophil Count 4.82 10^3/uL (1.2-6.7); Basophils % 0.5; Eosinophils % 2.8; HCT 38.6 % (40.0-50.0); Immature Grans % 0.3; Lymphocytes % 14.7; MCHC 33.7 % (32.0-36.0); MPV 9.8 fL (8.0-11.0); Monocytes % 7.7; Nucleated RBC 0 %; Platelet Count 223 10^3/uL (130-400); RBC 3.82 10^6/uL (4.36-5.78); RDW 13.5 % (11.8-14.1); RDW-SD 50.5 fL; WBC 6.51 10^3/uL (4.4-10.8)
[2021-08-08 12:34] LABS: PROTEIN 27.6 mg/dL; Prot/Crea Ur Ratio 0.19
[2021-08-08 12:38] LABS: Albumin 3.8 g/dL (3.4-5.0); Anion Gap 9.2 mmol/L (3-11); BUN 71 mg/dL (7-18); CO2 27.8 mmol/L (21.0-32.0); Calcium 9.2 mg/dL (8.5-10.1); Chloride 104 mmol/L (98-107); Estimated GFR 14.92 (mL/min/1.73m2); Glucose 118 mg/dL (74-106); Potassium 3.9 mmol/L (3.5-5.1); Sodium 141 mmol/L (136-145); Uric Acid 6.5 mg/dL (3.5-7.2)
[2021-08-11 09:59] LABS: Parathyroid Hormone,Intact 174 pg/mL (19-88)
== END 2021-08-08 03:49 | disposition home or self-care (01) ==
LOC: LBO 03:49
PROVIDERS: PCP Nurse Practitioner Family; Visit Provider Internal Medicine
DX: N18.9 Chronic kidney disease, unspecified (principal); Z01.818 Encounter for other preprocedural examination
CPT/HCPCS: 36415; 80048; 82040; 82565; 83970; 84100; 84156; 84550; 85025

== ENCOUNTER 2021-10-03 03:17 | Outpatient (CLI) | payer MEDICARE, BC, SELFPAY ==
[2021-10-03 14:27] LABS: Kit/Specimen SENT
== END 2021-10-03 03:18 | disposition home or self-care (01) ==
LOC: LBO 03:18
PROVIDERS: PCP Nurse Practitioner Family; Visit Provider Internal Medicine Nephrology
DX: Z01.818 Encounter for other preprocedural examination (principal)
CPT/HCPCS: 36415

== ENCOUNTER 2021-10-21 14:16 | Outpatient (CLI) | payer MEDICARE, BC, SELFPAY ==
[2021-10-21 14:33] LABS: Abs Immature Grans 0.02 10^3/uL (0.0-0.06); Absolute Basophil Count 0.03 10^3/uL (0.0-0.2); Absolute Eosinophil Count 0.25 10^3/uL (0.0-0.7); Absolute Lymphocyte Count 1.34 10^3/uL (1.2-3.4); Absolute Monocyte Count 0.53 10^3/uL (0.1-0.8); Absolute Neutrophil Count 4.88 10^3/uL (1.2-6.7); Basophils % 0.4; Eosinophils % 3.5; HCT 38.3 % (40.0-50.0); HGB 12.8 g/dL (13.5-17.5); Immature Grans % 0.3; MCH 33.5 pg (27.0-33.0); MCHC 33.4 % (32.0-36.0); MCV 100.3 fL (80-95); MPV 10.1 fL (8.0-11.0); Monocytes % 7.5; Neutrophils % 69.3; Nucleated RBC 0 %; Platelet Count 200 10^3/uL (130-400); RBC 3.82 10^6/uL (4.36-5.78); RDW 13.2 % (11.8-14.1); RDW-SD 48.4 fL; WBC 7.05 10^3/uL (4.4-10.8)
[2021-10-21 15:52] LABS: ALT 28 U/L (16-63); AST 13 U/L (15-37); Alkaline Phosphatase 78 U/L (46-116); Anion Gap 11.8 mmol/L (3-11); BUN 66 mg/dL (7-18); Bilirubin, Total 0.5 mg/dL (0.2-1.0); CO2 25.2 mmol/L (21.0-32.0); Calcium 9.1 mg/dL (8.5-10.1); Chloride 103 mmol/L (98-107); Estimated GFR 13.02 (mL/min/1.73m2); Glucose 137 mg/dL (74-106); Sodium 140 mmol/L (136-145)
[2021-10-21 16:00] LABS: CREATININE 4.5 mg/dL (0.70-1.30)
[2021-10-22 17:23] LABS: PSA, Ultrasensitive 0.22 ng/mL (<= 6.5)
== END 2021-10-21 14:17 | disposition home or self-care (01) ==
LOC: LBO 14:18
PROVIDERS: PCP Nurse Practitioner Family; Visit Provider Nurse Practitioner Adult Health
DX: C61 Malignant neoplasm of prostate (principal)
CPT/HCPCS: 36415; 80053; 84153; 85025

== ENCOUNTER 2021-11-03 04:15 | Outpatient (CLI) | payer MEDICARE, BC, SELFPAY ==
[2021-11-03 14:09] LABS: Kit/Specimen SENT
== END 2021-11-03 04:16 | disposition home or self-care (01) ==
PROVIDERS: PCP Nurse Practitioner Family; Visit Provider Internal Medicine Nephrology
DX: Z01.818 Encounter for other preprocedural examination (principal); Z76.82 Awaiting organ transplant status
CPT/HCPCS: 36415

== ENCOUNTER 2021-12-05 02:28 | Outpatient (CLI) | payer MEDICARE, BC, SELFPAY ==
[2021-12-05 14:32] LABS: Kit/Specimen SENT
== END 2021-12-05 02:29 | disposition home or self-care (01) ==
LOC: LBO 02:29
PROVIDERS: PCP Nurse Practitioner Family; Visit Provider Internal Medicine Nephrology
DX: Z01.818 Encounter for other preprocedural examination (principal); Z76.82 Awaiting organ transplant status
CPT/HCPCS: 36415

== ENCOUNTER 2022-01-01 16:18 | Outpatient (CLI) | payer MEDICARE, BC, SELFPAY ==
[2022-01-01 16:40] VITALS: BP 175/102; PULSE 80; RESP 16; TEMP 36.6; O2SAT 94
[2022-01-01 17:15] VITALS: BP 169/99; PULSE 71; RESP 16; TEMP 37.1; O2SAT 97
[2022-01-01 17:50] VITALS: BP 173/101; PULSE 72; RESP 16; TEMP 36.7; O2SAT 95
== END 2022-01-01 16:19 | disposition home or self-care (01) ==
LOC: INF 16:25
PROVIDERS: PCP Nurse Practitioner Family; Visit Provider Family Medicine
DX: U07.1 COVID-19 (principal)
CPT/HCPCS: 96374; Q0222

== ENCOUNTER 2022-01-02 01:42 | Outpatient (CLI) | payer MEDICARE, BC, SELFPAY | END 2022-01-02 01:43 | disposition home or self-care (01) | LOC: LBO 01:42 | PROVIDERS: PCP Nurse Practitioner Family ==

== ENCOUNTER 2022-01-30 15:35 | Outpatient (REF) | payer MEDICARE, BC, SELFPAY ==
[2022-02-01 13:15] LABS: COVID-19 RT-PCR UVMMC Result Negative (Negative)
== END 2022-01-30 15:36 | disposition home or self-care (01) ==
LOC: LBN 15:35
PROVIDERS: PCP Nurse Practitioner Family; Visit Provider Student in an Organized Health Care Education/Training Program
DX: Z20.822 Contact with and (suspected) exposure to COVID-19 (principal); Z01.818 Encounter for other preprocedural examination
CPT/HCPCS: U0003

== ENCOUNTER 2022-02-03 09:50 | Outpatient (CLI) | payer MEDICARE, BC, SELFPAY ==
[2022-02-03 15:35] LABS: Kit/Specimen SENT
== END 2022-02-03 09:51 | disposition home or self-care (01) ==
PROVIDERS: PCP Nurse Practitioner Family; Visit Provider Internal Medicine Nephrology
DX: Z76.82 Awaiting organ transplant status (principal); N18.5 Chronic kidney disease, stage 5; Z01.818 Encounter for other preprocedural examination
CPT/HCPCS: 36415

== ENCOUNTER 2022-03-02 03:48 | Outpatient (CLI) | payer MEDICARE, BC, SELFPAY | END 2022-03-02 03:49 | disposition home or self-care (01) | PROVIDERS: PCP Nurse Practitioner Family; Visit Provider Internal Medicine Nephrology | DX: Z76.82 Awaiting organ transplant status (principal); Z01.818 Encounter for other preprocedural examination; N18.5 Chronic kidney disease, stage 5 | CPT/HCPCS: 36415 ==

== ENCOUNTER 2022-04-02 04:47 | Outpatient (CLI) | payer MEDICARE, BC, SELFPAY ==
[2022-04-02 11:26] LABS: Kit/Specimen SENT
[2022-04-02 12:26] LABS: Anion Gap 8.9 mmol/L (3-11); BUN 58 mg/dL (7-18); CO2 27.1 mmol/L (21.0-32.0); Calcium 9.2 mg/dL (8.5-10.1); Chloride 105 mmol/L (98-107); Estimated GFR 11.13 (mL/min/1.73m2); Glucose 92 mg/dL (74-106); Potassium 4.3 mmol/L (3.5-5.1); Sodium 141 mmol/L (136-145)
[2022-04-02 12:35] LABS: CREATININE 5.2 mg/dL (0.70-1.30)
== END 2022-04-02 04:48 | disposition home or self-care (01) ==
LOC: LBO 04:48
PROVIDERS: PCP Nurse Practitioner Family; Visit Provider Internal Medicine
DX: N18.5 Chronic kidney disease, stage 5 (principal); Z01.818 Encounter for other preprocedural examination
CPT/HCPCS: 36415; 80048

== ENCOUNTER 2022-05-04 04:28 | Outpatient (CLI) | payer MEDICARE, BC, SELFPAY | END 2022-05-04 04:29 | disposition home or self-care (01) | LOC: LBO 04:30 | PROVIDERS: PCP Nurse Practitioner Family; Visit Provider Internal Medicine | DX: N18.5 Chronic kidney disease, stage 5 (principal); Z76.82 Awaiting organ transplant status | CPT/HCPCS: 36415 ==

== ENCOUNTER 2022-06-08 02:37 | Outpatient (CLI) | payer MEDICARE, BC, SELFPAY ==
[2022-06-08 11:43] LABS: Kit/Specimen SENT
== END 2022-06-08 02:38 | disposition home or self-care (01) ==
PROVIDERS: PCP Nurse Practitioner Family; Visit Provider Internal Medicine Nephrology
DX: Z01.818 Encounter for other preprocedural examination (principal)
CPT/HCPCS: 36415

== ENCOUNTER 2022-07-06 04:15 | Outpatient (CLI) | payer MEDICARE, BC, SELFPAY ==
[2022-07-06 12:29] LABS: Kit/Specimen SENT
== END 2022-07-06 04:16 | disposition home or self-care (01) ==
PROVIDERS: PCP Nurse Practitioner Family; Visit Provider Internal Medicine Nephrology
DX: Z01.818 Encounter for other preprocedural examination (principal)
CPT/HCPCS: 36415

== ENCOUNTER 2022-08-06 02:21 | Outpatient (CLI) | payer MEDICARE, BC, SELFPAY | END 2022-08-06 02:22 | disposition home or self-care (01) | LOC: LBO 02:21 | PROVIDERS: PCP Nurse Practitioner Family; Visit Provider Internal Medicine | DX: Z01.818 Encounter for other preprocedural examination (principal) | CPT/HCPCS: 36415 ==

== ENCOUNTER 2022-09-23 13:06 | Outpatient (CLI) | payer MEDICARE, BC, SELFPAY ==
--- NOTE | 2022-09-23 | DI.RAD_ITS ---
Exam(s) XR ABDOMEN FLAT UPRIGHT EXAM: 2D digital imaging was performed. CLINICAL HISTORY: ABD PAIN IN PERITONEAL DIALYSIS PATIENT. COMPARISON: CR XR CHEST 2V PA LATERAL from 09/12/2019 TECHNIQUE: Supine and upright views of the abdomen was performed. Three images were obtained. FINDINGS: LUNG BASES: Clear. BOWEL GAS PATTERN: Nondistended. FREE AIR: None. CALCIFICATIONS: No radiopaque calcifications. OSSEOUS STRUCTURES: Normal for age. OTHER FINDINGS: There has been placement of a peritoneal dialysis catheter. No gross abnormality is seen at the catheter. IMPRESSION: No evidence of an acute abdomen. DATA REPOSITORY: RADIATION DOSE DELIVERED:
== END 2022-09-23 13:26 ==
LOC: DI 13:07
PROVIDERS: PCP Nurse Practitioner Family; Visit Provider Nurse Practitioner
DX: R10.9 Unspecified abdominal pain (principal); N18.5 Chronic kidney disease, stage 5; Z99.2 Dependence on renal dialysis
CPT/HCPCS: 74019

== ENCOUNTER 2022-11-10 02:12 | Outpatient (CLI) | payer MEDICARE, BC, SELFPAY ==
[2022-11-10 10:43] LABS: Uric Acid 6.5 mg/dL (3.5-7.2)
[2022-11-10 10:46] LABS: Hemoglobin A1C 6.1 % (<5.7)
[2022-11-10 10:59] LABS: Calculated LDL 69 mg/dL (<100); Cholesterol 158 mg/dL (<200); HDL Cholesterol 47 mg/dL (40-60); Triglyceride 213 mg/dL (<150)
[2022-11-11 18:34] LABS: PSA, Ultrasensitive 0.32 ng/mL (<= 6.5)
== END 2022-11-10 02:13 | disposition home or self-care (01) ==
LOC: LBO 02:12
PROVIDERS: Nurse Practitioner Adult Health; PCP Nurse Practitioner Family; Visit Provider Nurse Practitioner Family
DX: E78.5 Hyperlipidemia, unspecified (principal); R73.01 Impaired fasting glucose; M10.9 Gout, unspecified; C61 Malignant neoplasm of prostate
CPT/HCPCS: 36415; 80061; 84153; 83036; 84550

== ENCOUNTER 2022-12-02 11:47 | Outpatient (REF) | payer MEDICARE, BC, SELFPAY ==
[2022-12-02 16:20] LABS: COVID-19 PCR Negative (Negative); Influenza A PCR Negative (Negative); Influenza B PCR Negative (Negative); RSV PCR Negative (Negative); Source Nasopharynx
== END 2022-12-02 11:48 | disposition home or self-care (01) ==
LOC: LBN 11:47
PROVIDERS: PCP Nurse Practitioner Family; Referring Provider Nurse Practitioner Family; Visit Provider Nurse Practitioner Family
DX: R11.0 Nausea (principal); R09.81 Nasal congestion; Z20.822 Contact with and (suspected) exposure to COVID-19
CPT/HCPCS: 87637

== ENCOUNTER 2023-03-03 11:20 | Outpatient (CLI) | payer MEDICARE, BC, SELFPAY ==
[2023-03-03 12:03] LABS: Anion Gap 10.8 mmol/L (3-11); BUN 40 mg/dL (7-18); CO2 28.2 mmol/L (21.0-32.0); Chloride 103 mmol/L (98-107); Estimated GFR 7.61 (mL/min/1.73m2); Ferritin 381 ng/mL (26-388); Glucose 115 mg/dL (74-106); Potassium 3.7 mmol/L (3.5-5.1); Sodium 142 mmol/L (136-145)
[2023-03-03 13:26] LABS: CREATININE 7.1 mg/dL (0.70-1.30)
== END 2023-03-03 11:21 | disposition home or self-care (01) ==
LOC: LBO 11:21
PROVIDERS: PCP Nurse Practitioner Family; Visit Provider Nurse Practitioner Family
DX: E61.1 Iron deficiency (principal); E87.6 Hypokalemia; N18.5 Chronic kidney disease, stage 5
CPT/HCPCS: 36415; 80048; 82728

== ENCOUNTER 2023-05-14 04:35 | Outpatient (CLI) | payer MEDICARE, BC, SELFPAY ==
[2023-05-17 14:34] LABS: PSA, Ultrasensitive 0.25 ng/mL (<= 6.5)
== END 2023-05-14 04:36 | disposition home or self-care (01) ==
PROVIDERS: PCP Nurse Practitioner Family; Visit Provider Nurse Practitioner Adult Health
DX: C61 Malignant neoplasm of prostate (principal)
CPT/HCPCS: 36415; 84153

== ENCOUNTER → 2023-09-17 13:59 | Outpatient (CLI) | payer MEDICARE, BC, SELFPAY ==
--- NOTE | 2023-09-17 13:45 | DI.RAD_ITS ---
Exam(s) XR CHEST 2V PA LATERAL EXAM: XR CHEST 2V PA LATERAL CLINICAL HISTORY: cough R05.9 TECHNIQUE: 2D digital imaging was performed of the chest. Two images were obtained. PA and lateral views were obtained. COMPARISON: CR XR CHEST 2V PA LATERAL from 02/06/2020 FINDINGS: MEDIASTINUM: Normal. HEART: Normal. PULMONARY VASCULATURE: Normal. LUNGS: Clear. PLEURAL SPACE: No pleural effusion or pneumothorax. BONE:Within normal limits for the patient's age. OTHER FINDINGS:Normal. IMPRESSION: No acute pulmonary findings. DATA REPOSITORY: RADIATION DOSE DELIVERED:
== END ==
PROVIDERS: PCP Nurse Practitioner Family; Visit Provider Emergency Medicine
DX: R05.9 Cough, unspecified (principal)
CPT/HCPCS: 71046

== ENCOUNTER → 2023-09-29 01:25 | Outpatient (CLI) | payer OTHER, SELFPAY ==
--- NOTE | 2023-09-29 09:30 | DI.US_ITS ---
APPROVED REPORT EXAM: Comprehensive 2D, Doppler, and color-flow Echocardiogram Indications: Pre transplant evaluation for kidney transplant Other Information Study Quality: Adequate Conclusion Normal left ventricular wall thickness, chamber size, and systolic function. Ejection fraction is 55 %. There is stage I diastolic dysfunction. Wall motion is normal Normal right ventricular size and systolic function Both atria are normal in size There are no structural valvular abnormalities Mild mitral regurgitation Right ventricular systolic pressure could not be estimated Wall motion Left Ventricle The left ventricle is normal size. The left ventricular systolic function is normal. The left ventric ular ejection fraction is within the normal range. There is normal left ventricular wall thickness. T here is normal LV segmental wall motion. Transmitral Doppler flow pattern suggests impaired LV relaxa tion. There is no ventricular septal defect visualized. LVEF is 55%. Right Ventricle The right ventricle is normal size. The right ventricular systolic function is normal. Atria The left atrium size is normal. The right atrium size is normal. The interatrial septum is intact wit h no evidence for an atrial septal defect. Aortic Valve The aortic valve is normal in structure. Aortic valve is trileaflet. There is no aortic valvular sten osis. No aortic regurgitation is present. Mitral Valve The mitral valve is normal in structure. No evidence of mitral valve stenosis. Mild mitral regurgitat ion. Tricuspid Valve The tricuspid valve is normal in structure. There is no tricuspid valve stenosis. Trace tricuspid reg urgitation. Unable to assess PA pressure. Pulmonic Valve The pulmonary valve is normal in structure. There is no pulmonic valvular stenosis. Trace pulmonic re gurgitation. Great Vessels The aortic root is normal in size. The ascending aorta is normal in size. Aortic arch is not well vis ualized. IVC is normal in size and collapses >50% with inspiration. Pericardium There is no pericardial effusion. 2D Dimensions IVSD d PLAX 1.00 cm M: 0.6-1.2 Ao Root d 3.39 cm M: 3.1 - 3.7 LVPW d PLAX 1.02 cm M: 0.6 - 1.2 Ao Asc Diam d 3.19 cm M: 2.6 - 3.4 LVID d PLAX 5.38 cm M: 4.2 - 5.8 LVDs 3.76 cm M: 2.5 - 4.0 LV EF Teichholz 56.8 % FS 30.06 % LV EDV (Teich) 140.1 mL LV ESV (Teich) 60.5 mL M-Mode TAPSE 1.70 cm (M/F) >1.7 Auto EF LV EDV A4C 105.7 mL LV EDV A2C 127.3 mL LV EDV BP 116.2 mL LV ESV A4C 50.2 mL LV ESV A2C 54.7 mL LV ESV BP 51.9 mL LVEF(%) A4C 52.5 % LVEF(%) A2C 57.1 % LVEF(%) BP 55.3 % LV SV A4C 55.5 ml LV SV A2C 72.7 ml LV SV BP 64.3 ml LV CO A4C 3.8 L/min LV CO A2C 5.1 L/min LV CO BP 4.4 L/min HR A4C 68.70 BPM HR A2C 69.75 BPM LV EDV Index (BP) LV Strain Long Pk Overal Avg (s) 16.83 LA Volume LA Length A4C 5.0 cm LA Length A2C 4.1 cm LA Area A4C s 15.90 cm2 LA Area A2C s 14.21 cm2 LA Vol A4C A-L 42.86 mL LA Vol A2C A-L 42.20 mL LA Vol Biplane A-L 47.2 mL LA Vol/BSA A4C A-L LA Vol/BSA A2C A-L LA Vol/BSA BP A-L 22.2 mL/m2 LA Vol A4C MOD 40.4 mL LA Vol A2C MOD 39.7 mL LA Vol BP MOD 44.3 mL RA Volume RA Area A4C 11.4 cm2 RA ESV A4C (A-L) 21.2mL RA Vol/BSA A4C A-L RA Length A4C 5.2 cm RA ESV A4C (MOD) 20.5mL LV Diastology MV E' medial 0.056 (>0.07 m/s) MV E Vmax 0.61 (0.4-1.3 m/s) MV E/E' MED 10.79 (<14) MV A Vmax 0.95 (0.4-1.3 m/s) MV E' lateral 0.082 (>0.1 m/s) E/A Ratio 0.6 MV E/E' LAT 7.38 (<14) MV E' Average 0.069 m/s MV E/E'(average) 8.77 Aortic Valve AoV Vmax 1.34 m/s LVOT Vmax 1.05 m/s AoV Peak Grad 7.1 mmHg LVOT Peak Grad 4.4 mmHg AoV Area (Vmax) 2.57 cm2 LVOT VTI 0.252 m AoV VTI 0.291 m LVOT Mean Grad 2.3 mmHg AoV Mean Sebastián. 0.92 m/s LVOT SV 82.06 mL AoV Mean Grad 3.8 mmHg LVOT Diam s 2.00 cm AoV Area (VTI) 2.82 cm2 Velocity Ratio 0.78 Mitral Valve MV DT 398 (160-240 msec) MV Vmax TIPS 1.02 m/s MV Mean Grad 1.6 (<2mmHg) MV VTI 0.250 m Pulmonary Valve PV Vmax 1.10 (0.5-1.5 m/s) RVOT Vmax 0.57 m/s PV Peak Grad 4.9 mmHg RVOT Peak Gr. 1.3 mmHg PV Mean Sebastián 0.85 m/s RVOT VTI 0.130 m PV Mean Grad 3.2 mmHg RVOT Mean Gr. 0.6 mmHg Tricuspid Valve RA Pressure 3.00 mmHg TV S' 0.12 m/s
== END ==
PROVIDERS: PCP Nurse Practitioner Family; Visit Provider Internal Medicine Nephrology
DX: Z76.82 Awaiting organ transplant status (principal)
CPT/HCPCS: 93306

== ENCOUNTER 2023-09-30 11:25 | Outpatient (CLI) | payer OTHER, SELFPAY ==
--- NOTE | 2023-09-30 11:45 | RT.EKG_ITS ---
APPROVED REPORT Exam: Resting ECG Reason for Exam: pRE-OP Patient Location: O HR:53 bpm ECG Measurements Heart Rate 53 AXIS FL 173 P 20 QRSd 111 QRS 12 QT 458 T 57 QTc 430 Conclusion Sinus rhythm...normal P axis, V-rate 50- 99 Normal Electrocardiogram
== END 2023-09-30 11:26 | disposition home or self-care (01) ==
PROVIDERS: PCP Nurse Practitioner Family; Visit Provider Internal Medicine Nephrology
DX: Z01.818 Encounter for other preprocedural examination (principal)
CPT/HCPCS: 93005; 93010

== ENCOUNTER → 2023-10-07 00:42 | Outpatient (CLI) | payer OTHER, SELFPAY ==
--- NOTE | 2023-10-07 | DI.NM_ITS ---
APPROVED REPORT Exam: Pharmacologic Patient Location: Out-Patient Room/Bed: Stress Nurse: Rin Solomon RN Ordering Provider:ALICE GIBBS, Contact Number: [phone] BMI: 28.44 Baseline Rhythm: Sinus Rhythm Indications: Pre transplant eval for kidney Medical History Medical History: Iron deficiency anemia, periodic limb disorder, pre kidney transplant listed, CKD, s econdary hyperparathyroidism, obesity, peripheral neuropathy, HTN, HLD Cardiac Medications: Allopurinol, carvedilol, diltiazem, gabapentin, ibersartan, lisinopril, medical marijuana, prorenal QD, zofran, pantoprazole, rosuvastatin, potassium chloride Allergies: Amoxicillin Cardiac Risk Factors: HTN, HLD, former smoker, obesity Previous Cardiac Procedures: None Pretest Chest Pain Characteristics: None Exercise History: Indeterminate Physical Disabilities: Patient is on dialysis Lung Sounds: Clear to auscultation Heart Sounds: Regular Stress Test Details Test: Pharmacologic stress testing performed using 0.4 mg of regadenoson per 5 mL given IV over 10 s econds. Reason for pharmacologic stress test: Diaylsis . Nuclear Acquisition: Rest Tc-99m/Stress Tc-99m 1 day Rest Isotope: Tc-99m Sestamibi. Dose: 9.8 Date: 10/07/2023 Injection Time: 1055 Stress Isotope: Tc-99m Sestamibi. Dose: 30.0 Date: 10/07/2023 Injection Time: 1310 HR Resting HR Supine: 61 bpm Max Heart Rate (APMHR): 148.125794 bpm Target HR (85% APMHR): 125.382621 bpm Max HR Achieved: 82 bpm % of APMHR: 55.41 Recovery HR: 75 bpm BP Resting BP Supine: 138/82 mmHg Max BP: 138/82 mmHg Recovery BP: 126/82 mmHg ECG Resting ECG: Sinus Rhythm Ectopy: None Stress ECG: Sinus Rhythm ST Change: Nondiagnostic low heart rate Arrhythmia: None Recovery ECG: Sinus Rhythm Recovery ST Change: Nondiagnostic low heart rate Recovery Arrhythmia: None Clinical Angina Score: None Rate Pressure Product: 06602 Stress ECG Conclusion 1. Resting electrocardiogram was normal 2. Patient underwent testing using pharmacologic stress with regadenoson 3. Peak heart rate achieved was 55% of maximal predicted for age 4. Electrocardiographic portion of the test was nondiagnostic 5. See MPI report Stress Test Summary STAGE HR BP SpO2 Symptoms NOTES Supine 61 138/82 1 min post Lexiscan injection 79 108/72 3 min post Lexiscan injection 76 138/82 6 min post Lexiscan injection 75 126/82 MPI Conclusion Myocardial perfusion is normal. There is no ischemia or evidence of prior infarction EF is 60% with normal wall motion Radiologist Interpretation Radiologist agrees with Poured Wall Foreman's Interpretation. Radiologist Interpretation by: Brett Mahoney MD Interpretation Date/Time: 10/07/2023 17:52:50
[2023-10-07] MEDS: Regadenoson 0.4 MG/5 ML SYR IVP (13:41)
== END ==
PROVIDERS: PCP Nurse Practitioner Family; Visit Provider Internal Medicine Nephrology
DX: Z01.818 Encounter for other preprocedural examination (principal)
CPT/HCPCS: 78452; 93017; J2785

== ENCOUNTER 2023-11-03 05:11 | Outpatient (CLI) | payer MEDICARE, SELFPAY ==
[2023-11-05 11:58] LABS: PSA, Ultrasensitive 0.21 ng/mL (<= 6.5)
== END 2023-11-03 05:12 | disposition home or self-care (01) ==
LOC: LBO 05:11
PROVIDERS: PCP Nurse Practitioner Family; Visit Provider Internal Medicine
DX: Z85.46 Personal history of malignant neoplasm of prostate (principal)
CPT/HCPCS: 36415; 84153

== ENCOUNTER 2024-05-09 13:20 | Outpatient (CLI) | payer MEDICARE, BC, SELFPAY ==
[2024-05-12 18:25] LABS: PSA, Ultrasensitive 0.14 ng/mL (<= 6.5)
== END 2024-05-09 13:21 | disposition home or self-care (01) ==
LOC: LBO 13:30
PROVIDERS: PCP Nurse Practitioner Adult Health; Visit Provider Nurse Practitioner
DX: Z85.46 Personal history of malignant neoplasm of prostate (principal)
CPT/HCPCS: 36415; 84153

== ENCOUNTER 2024-07-06 09:49 | Outpatient (CLI) | payer MEDICARE, BC, SELFPAY ==
--- NOTE | 2024-07-06 09:15 | DI.RAD_ITS ---
Exam(s) XR FOOT RT COMPLETE EXAM: XR FOOT RT COMPLETE CLINICAL HISTORY: Blister right great toe, S90.424A, rt foot pain, M79.671. TECHNIQUE: 2D digital imaging was performed of the right foot. Three images were obtained. AP, obl ique and lateral views were obtained. COMPARISON: CR RIGHT FOOT COMPLETE from 05/12/2017 FINDINGS: BONES: No acute fracture is present. No bony destructive lesion is seen. JOINTS: No dislocation present. The joint spaces are well maintained. SOFT TISSUE: Normal. IMPRESSION: No radiographic evidence to suggest osteomyelitis. DATA REPOSITORY: RADIATION DOSE DELIVERED:
== END 2024-07-06 10:09 ==
LOC: DI 09:50
PROVIDERS: PCP Nurse Practitioner Adult Health; Visit Provider Podiatrist
DX: S90.424D Blister (nonthermal), right lesser toe(s), subsequent encounter (principal); M79.671 Pain in right foot; X58.XXXD Exposure to other specified factors, subsequent encounter
CPT/HCPCS: 97597; 73630

== ENCOUNTER → 2024-08-15 10:18 | Outpatient (BNVA) | payer MEDICARE, BC, SELFPAY | PROVIDERS: PCP Nurse Practitioner Adult Health; Referring Provider Nurse Practitioner Adult Health; Visit Provider Podiatrist | DX: L97.511 Non-pressure chronic ulcer of other part of right foot limited to breakdown of skin (principal); Z94.0 Kidney transplant status; G60.3 Idiopathic progressive neuropathy; G62.9 Polyneuropathy, unspecified; G60.9 Hereditary and idiopathic neuropathy, unspecified | CPT/HCPCS: 97597 ==

== ENCOUNTER → 2024-09-06 11:35 | Outpatient (BNVA) | payer MEDICARE, BC, SELFPAY | PROVIDERS: PCP Nurse Practitioner Adult Health; Referring Provider Nurse Practitioner Adult Health; Visit Provider Podiatrist | DX: L97.511 Non-pressure chronic ulcer of other part of right foot limited to breakdown of skin (principal); Z94.0 Kidney transplant status; G60.3 Idiopathic progressive neuropathy; G62.9 Polyneuropathy, unspecified; G60.9 Hereditary and idiopathic neuropathy, unspecified | CPT/HCPCS: 97597 ==

== ENCOUNTER → 2024-09-27 11:27 | Outpatient (BNVA) | payer MEDICARE, BC, SELFPAY | PROVIDERS: PCP Nurse Practitioner Adult Health; Referring Provider Nurse Practitioner Adult Health; Visit Provider Podiatrist | DX: Z51.89 Encounter for other specified aftercare (principal); L97.511 Non-pressure chronic ulcer of other part of right foot limited to breakdown of skin; Z94.0 Kidney transplant status; G60.3 Idiopathic progressive neuropathy; G62.9 Polyneuropathy, unspecified; G60.9 Hereditary and idiopathic neuropathy, unspecified | CPT/HCPCS: 97597 ==

== ENCOUNTER → 2024-10-19 10:44 | Outpatient (BNVA) | payer MEDICARE, BC, SELFPAY | PROVIDERS: PCP Nurse Practitioner Adult Health; Referring Provider Nurse Practitioner Adult Health; Visit Provider Podiatrist | DX: Z51.89 Encounter for other specified aftercare (principal); L97.511 Non-pressure chronic ulcer of other part of right foot limited to breakdown of skin; Z94.0 Kidney transplant status; G60.3 Idiopathic progressive neuropathy; G62.9 Polyneuropathy, unspecified; G60.9 Hereditary and idiopathic neuropathy, unspecified; B07.0 Plantar wart | CPT/HCPCS: 17110 ==

== ENCOUNTER 2024-10-31 02:06 | Outpatient (CLI) | payer MEDICARE, BC, SELFPAY ==
[2024-11-02 15:08] LABS: PSA, Ultrasensitive 0.15 ng/mL (<= 6.5)
== END 2024-10-31 02:07 | disposition home or self-care (01) ==
LOC: LBO 02:06
PROVIDERS: PCP Nurse Practitioner Adult Health; Visit Provider Nurse Practitioner
DX: Z85.46 Personal history of malignant neoplasm of prostate; I10 Essential (primary) hypertension; E78.5 Hyperlipidemia, unspecified; R73.01 Impaired fasting glucose
CPT/HCPCS: 36415; 80061; 84153; 83036

== ENCOUNTER → 2024-11-16 13:44 | Outpatient (BNVA) | payer MEDICARE, BC, SELFPAY | PROVIDERS: PCP Nurse Practitioner Adult Health; Referring Provider Nurse Practitioner Adult Health; Visit Provider Podiatrist | DX: B07.0 Plantar wart (principal); Z51.89 Encounter for other specified aftercare; L97.511 Non-pressure chronic ulcer of other part of right foot limited to breakdown of skin; Z94.0 Kidney transplant status; G60.3 Idiopathic progressive neuropathy; G62.9 Polyneuropathy, unspecified; G60.9 Hereditary and idiopathic neuropathy, unspecified | CPT/HCPCS: 11042; 17110 ==

== ENCOUNTER → 2024-12-13 12:58 | Outpatient (BNVA) | payer MEDICARE, BC, SELFPAY | PROVIDERS: PCP Nurse Practitioner Adult Health; Referring Provider Nurse Practitioner Adult Health; Visit Provider Podiatrist | DX: B07.0 Plantar wart (principal); Z51.89 Encounter for other specified aftercare; L97.511 Non-pressure chronic ulcer of other part of right foot limited to breakdown of skin; Z94.0 Kidney transplant status; G60.3 Idiopathic progressive neuropathy; G62.9 Polyneuropathy, unspecified | CPT/HCPCS: 17110 ==

== ENCOUNTER → 2025-01-10 12:56 | Outpatient (BNVA) | payer MEDICARE, BC, SELFPAY | PROVIDERS: PCP Nurse Practitioner Adult Health; Referring Provider Nurse Practitioner Adult Health; Visit Provider Podiatrist | DX: Z51.89 Encounter for other specified aftercare (principal); L97.511 Non-pressure chronic ulcer of other part of right foot limited to breakdown of skin; B07.0 Plantar wart; Z94.0 Kidney transplant status; G60.3 Idiopathic progressive neuropathy; G62.9 Polyneuropathy, unspecified; G60.9 Hereditary and idiopathic neuropathy, unspecified | CPT/HCPCS: 97597; 17110 ==

== ENCOUNTER 2025-01-19 12:12 | Outpatient (CLI) | payer MEDICARE, BC, SELFPAY ==
[2025-01-19 12:05] LABS: Calculated LDL 83 mg/dL (<100); Cholesterol 163 mg/dL (<200); HDL Cholesterol 56 mg/dL (>or=40); Triglyceride 123 mg/dL (<150)
[2025-01-19 15:10] LABS: Hemoglobin A1C 5.8 % (<5.7)
== END 2025-01-19 12:13 | disposition home or self-care (01) ==
LOC: LBO 12:12
PROVIDERS: PCP Nurse Practitioner Adult Health; Visit Provider Nurse Practitioner Adult Health
DX: E78.5 Hyperlipidemia, unspecified (principal); R73.01 Impaired fasting glucose; I10 Essential (primary) hypertension
CPT/HCPCS: 36415; 80061; 83036

== ENCOUNTER → 2025-01-31 13:48 | Outpatient (BNVA) | payer MEDICARE, BC, SELFPAY | PROVIDERS: PCP Nurse Practitioner Adult Health; Referring Provider Nurse Practitioner Adult Health; Visit Provider Podiatrist | DX: Z51.89 Encounter for other specified aftercare (principal); L97.511 Non-pressure chronic ulcer of other part of right foot limited to breakdown of skin; B07.0 Plantar wart; G60.3 Idiopathic progressive neuropathy; Z94.0 Kidney transplant status | CPT/HCPCS: 17110 ==

== ENCOUNTER → 2025-02-21 13:42 | Outpatient (BNVA) | payer MEDICARE, BC, SELFPAY | PROVIDERS: PCP Nurse Practitioner Adult Health; Referring Provider Nurse Practitioner Adult Health; Visit Provider Podiatrist | DX: Z51.89 Encounter for other specified aftercare (principal); L97.512 Non-pressure chronic ulcer of other part of right foot with fat layer exposed; B07.0 Plantar wart; G60.3 Idiopathic progressive neuropathy; Z94.0 Kidney transplant status | CPT/HCPCS: 11042 ==

== ENCOUNTER → 2025-03-26 10:59 | Outpatient (BNVA) | payer MEDICARE, BC, SELFPAY | PROVIDERS: PCP Nurse Practitioner Adult Health; Referring Provider Nurse Practitioner Adult Health; Visit Provider Podiatrist | DX: Z51.89 Encounter for other specified aftercare (principal); L97.512 Non-pressure chronic ulcer of other part of right foot with fat layer exposed; B07.0 Plantar wart; Z94.0 Kidney transplant status; G60.3 Idiopathic progressive neuropathy | CPT/HCPCS: 97597 ==

== ENCOUNTER → 2025-04-30 09:58 | Outpatient (BNVA) | payer MEDICARE, BC, SELFPAY | PROVIDERS: PCP Nurse Practitioner Adult Health; Referring Provider Nurse Practitioner Adult Health; Visit Provider Podiatrist | DX: Z51.89 Encounter for other specified aftercare (principal); L97.512 Non-pressure chronic ulcer of other part of right foot with fat layer exposed; B07.0 Plantar wart; Z94.0 Kidney transplant status; G60.3 Idiopathic progressive neuropathy; G62.9 Polyneuropathy, unspecified | CPT/HCPCS: 11055 ==

== ENCOUNTER 2025-05-03 14:56 | Outpatient (CLI) | payer MEDICARE, BC, SELFPAY | END 2025-05-03 14:57 | disposition home or self-care (01) | LOC: LBO 14:58 | PROVIDERS: PCP Nurse Practitioner Adult Health; Visit Provider Internal Medicine | DX: Z85.46 Personal history of malignant neoplasm of prostate (principal) | CPT/HCPCS: 36415; 84153 ==